=== PATIENT | female | born 1985 | race Caucasian/White ===

== ENCOUNTER 2019-07-17 09:54 | Inpatient (IN) | payer OTHER, MEDICARE, SELFPAY ==
--- NOTE | ~2019-07-17 | NM_ITS ---
EXAMINATION: NM hepatobiliary wo pharm EXAM DATE: 07/18/2019 12:56 INDICATION: Abdominal pain. TECHNIQUE: 5 mCi Tc-99m mebrofenin (Choletec) was administered intravenously. Scintigraphic images o f the abdomen were obtained for one hour. At the 1 hour 15 minute time point, 1.6 mcg sincalide (Kine vac) was administered by slow intravenous infusion, and imaging was continued for 30 minutes. Gallbla dder ejection fraction was calculated by the technologist. There is no prior study for comparison. FINDINGS: There is normal clearance of radiotracer from the blood pool. There is homogeneous tracer u ptake by the liver. Activity progresses to the gallbladder and bowel. The gallbladder ejection fract ion (GBEF) is 0 % (most patients with gallbladder dysfunction have GBEF < 35%, but there is overlap w ith the normal range of 10-90%). IMPRESSION: Gallbladder ejection fraction 0%, consistent with gallbladder dysfunction and/or chronic cholecystitis. Reviewed, dictated and finalized at location B. IMPRESSION: Gallbladder ejection fraction 0%, consistent with gallbladder dysf unction and/or chronic cholecystitis.
--- NOTE | ~2019-07-17 | US_ITS ---
EXAMINATION: US right upper quadrant EXAM DATE: 07/17/2019 14:24 INDICATION: Abdominal pain, nausea and vomiting. Symptoms 12 hours. TECHNIQUE: Multiple grayscale and Doppler images of the abdomen right upper quadrant were obtained (b y a technologist who performed the scan) and subsequently reviewed. Comparison is made to prior exami nation from 01/11/2016. FINDINGS: The pancreatic head and body are normal in appearance. The pancreatic tail is not visualized. The l iver has normal echogenicity and contour. There are no focal liver lesions identified. There is no evidence of intrahepatic biliary duct dilation. Portal venous flow was seen in the hepatopedal, nor mal direction and has normal Doppler waveform. No right-sided hydronephrosis. Common bile duct measures 5 mm, which is normal. The gallbladder wall is normal in thickness, with mo derate amount of distention. No sonographic evidence of pericholecystic fluid. There is no cholelit hiases. Technologist performing exam reports patient did not demonstrate sonographic Cho's sign. Please note that this sign is less reliable in patients who have received pain medication. IMPRESSION: 1. Moderately distended, but otherwise unremarkable gallbladder. Reviewed, dictated and finalized at location G.
--- NOTE | ~2019-07-17 | CT_ITS ---
EXAMINATION: CT abdomen pelvis w con DATE: 07/17/2019 10:55 INDICATION: Abdominal pain. Nausea and vomiting. TECHNIQUE: Computed tomography (CT) of the abdomen and pelvis was performed with 100 mL Omnipaque 350 intravenous contrast. Automated exposure control and iterative reconstruction technique were employe d. The dose-length product was 392.24 mGy-cm. COMPARISON: CT abdomen and pelvis 10/15/2018 FINDINGS: The visualized portions of the lung bases are clear without pneumonia or pleural effusion. The heart size is normal. No pericardial effusion. There is a small sliding hiatal hernia. The liver is normal. The gallbladder is distended. The spleen, pancreas, adrenal glands, and kidneys are normal . There are no dilated loops of bowel. There are no dilated loops of bowel. The appendix is not visua lized. There are no pathologically enlarged lymph nodes. There is trace pelvic ascites, likely physio logic. There is a benign bone island in proximal left femur. IMPRESSION: 1. Small sliding hiatal hernia. 2. Gallbladder distention, which may be secondary to fasting. Correlate with physical exam to exclude acute cholecystitis. Reviewed, dictated and finalized at location A. IMPRESSION: 1. Small sliding hiatal hernia. 2. Gallbladder distention, which may be secondary to fasting. Correlate with ph ysical exam to exclude acute cholecystitis.
[2019-07-17 10:00] VITALS: BP 111/78; PULSE 76; RESP 16; TEMP 36.4; O2SAT 100
--- NOTE | 2019-07-17 10:07 | ED.NAVMDI ---
HPI - Nausea/Vomiting/Diarrhea General Chief complaint: Nausea/Vomiting/Diarrhea Stated complaint: vomiting for a long time. Time Seen by Provider: 07/17/19 09:55 Source: patient and RN notes reviewed Mode of arrival: ambulatory Limitations: no limitations History of Present Illness HPI Narrative: Pt is a 34 y/o female who presents to the ED with c/o nausea and vomiting starting 12 hours ago. She notes that she has been vomiting roughly once per hour since her symptoms began. Pt states that she has been taking Zofran and Phenergan for her nausea, but notes that the medications don't alleviate her symptoms. She also reports having an intermittent fever for the past several days, upper ABD pain, and bright red blood in her stool, but denies any diarrhea or cough. Pt states that she has only had one episode of blood in her stool, which was earlier today. MD elicited complaint: nausea and vomiting Onset (ago): hour(s) (12) Associated nausea: Yes Associated abdominal pain: Yes Location of pain: other (upper ABD) Relieving factors: none Associated symptoms: fever/chills (fever) and other (hematochezia) Treatment prior to arrival: other (Phenergan) Related Data Home Medications Medication Instructions Recorded Confirmed baclofen 10 mg tablet 10 mg PO TID 05/21/19 cholecalciferol (vitamin D3) 1,250 50,000 unit PO WEEKLY 05/21/19 mcg (50,000 unit) capsule fingolimod 0.5 mg capsule 0.5 mg PO DAILY 05/21/19 modafinil 100 mg tablet 100 mg PO BID tablet 05/21/19 rizatriptan 10 mg tablet See Rx Instructions PO .COMPLEX 05/21/19 topiramate 200 mg tablet 200 mg PO BID 05/21/19 trazodone 50 mg tablet 50 mg PO TID 05/21/19 buspirone 10 mg PO BID 07/17/19 Allergies Allergy/AdvReac Type Severity Reaction Status Date / Time cefaclor Allergy Unknown Hives Verified 05/22/19 13:07 Review of Systems Review of Systems: All systems reviewed & are unremarkable except as noted in HPI and below Constitutional: Constitutional: Reports fever(s) Respiratory: Respiratory: Denies cough Gastrointestinal: Gastrointestinal: Reports abdominal pain (upper ABD pain), Reports hematochezia, Denies diarrhea, Reports nausea and Reports vomiting PMFSH Past Medical History Medical History Anxiety Colitis Fracture of left clavicle Gastric ulcer Hypothyroidism Major depressive disorder, single episode, unspecified Migraine, unspecified, not intractable, without status migrainosus Multiple sclerosis UTI (urinary tract infection) Surgical History Surgical History History of appendectomy History of elective section History of endometrial ablation Social History Social History Smoking status: Former smoker Smoking end date: 04/10/04 Alcohol intake: never Substance use: current Substance use type: marijuana Exam Narrative: Exam Narrative: APPEARANCE: No acute distress, nontoxic, resting in bed HEENT: Normocephalic, atraumatic, oromucosa dry RESPIRATORY: No respiratory distress, clear to auscultation bilaterally with no rhonchi wheezing or rales CARDIOVASCULAR: RRR s murmur ABDOMINAL: Soft, nondistended, diffusely tender to palpation, no rebound or guarding Rectal: No hemorrhoids or fissures, no active bleeding, soft brown stool that is Hemoccult negative MUSCULOSKELETAl: Moves all extremities. No clubbing, cyanosis or edema. NEURO: Awake and alert. Following commands, speech normal, no focal deficits SKIN:: Warm, dry. Normal Color PSYCHIATRIC: Normal affect/mood Course Course Emergency Course: Discussed with patient. States she has a history of GI complaints approximately once a month. States she is had no previous work-up Patient continues to have abdominal pain repeated on exam continues to be diffusely tender palpation with increased tenderness right upper quadrant. Continues
[2019-07-17] MEDS: ONDANSETRON INJ 4 MG/2 ML VIAL IV PUSH (10:20)
[2019-07-17] MEDS: SODIUM CHLORIDE 0.9% IV 1,000 ML 999 ML IV CONT ×2 (10:20→12:49)
[2019-07-17] MEDS: FAMOTIDINE 20 MG/2 ML VIAL IV PUSH (10:22)
[2019-07-17 10:24] LABS: Basophils Percent Auto 0.2 % (0.2-1.2); Hematocrit 43.3 % (37.0-47.0); Hemoglobin 14.2 g/dL (12.0-15.0); Immature Granulocyte Absolute 0.01 K/mm3 (0.00-0.031); Immature Granulocyte Percent A 0.2 % (0-0.5); Lymphocytes Absolute Auto 0.29 K/mm3 (0.9-3.2); Lymphocytes Percent Auto 5.9 % (18.3-44.2); Mean Corpuscular HGB Conc 32.8 g/dl (32-36); Mean Corpuscular Hemoglobin 30.3 pg (26-34); Mean Corpuscular Volume 92.5 fl (80-100); Mean Platelet Volume 10.5 fl (7.4-10.4); Monocytes Absolute Auto 0.2 K/mm3 (0.1-0.6); Monocytes Percent Auto 3.1 % (2.6-8.5); Neutrophils Absolute Auto 4.4 K/mm3 (1.3-6.7); Neutrophils Percent Auto 90.6 % (45.5-73.1); Platelet Count Result 204 k/mm3 (150-375); Red Blood Count 4.68 M/mm3 (4.2-5.4); Red Cell Distribution Width 12.4 % (11.5-14.5); White Blood Count 4.9 K/mm3 (4.5-10.0)
[2019-07-17 10:30] LABS: Add Urine Microscopic? YES; Amorphous Sediment Urine Few; Appearance Urine Cloudy (Clear); Bilirubin Urine 1+ (Negative); Blood Urine Negative (Negative); Color Urine Yellow (Yellow); Glucose Urine UA Negative (Negative); Ketones Urine 1+ mg/dL (Negative); Leukocyte Esterase Ur 1+ LEU/UL (Negative); Mucus Urine Few /lpf; Nitrate Urine Negative (Negative); Protein Urine 1+ mg/dL (Negative); Specific Grav Ur 1.025 (1.001-1.035); Squamous Epithelial Cell Urine Few /hpf (Few); Urobilinogen Urine Negative mg/dL (<2.0)
[2019-07-17 10:35] LABS: INR 0.9; Prothrombin Time 12.2 Seconds (11.1-14.7)
[2019-07-17 10:36] LABS: Partial Thromboplastin Time 29.2 SECONDS (22.3-36.8)
[2019-07-17 10:39] LABS: Alanine Aminotransferase 24 U/L (4-35); Albumin Level 4.9 g/dL (3.5-5.1); Alkaline Phosphatase 122 U/L (38-126); Aspartate Amino Transferase 22 U/L (14-36); Bilirubin,Total 0.4 mg/dL (0.2-1.3); Blood Urea Nitrogen 8 mg/dL (7-17); Calcium 9.3 mg/dL (8.4-10.2); Carbon Dioxide 22 mmol/L (22-30); Chloride 104 mmol/L (98-107); Estimated CRCL calculation 90 ml/min; Estimated Glomerular Filt Rate > 60; Glucose 117 mg/dL (65-105); Lipase 76 U/L (23-300); Potassium 3.7 mmol/L (3.4-5.0); Sodium 137 mmol/L (137-145)
[2019-07-17] MEDS: MORPHINE SULFATE 4 MG/ML INJ IV PUSH ×2 (11:31→14:31)
[2019-07-17 12:10] VITALS: BP 102/64; PULSE 76; RESP 18; O2SAT 99
[2019-07-17 13:01] VITALS: BP 105/68; PULSE 74; RESP 20; O2SAT 100
[2019-07-17 16:05] VITALS: BP 114/70; PULSE 74; RESP 16; TEMP 36.8; O2SAT 100
--- NOTE | 2019-07-17 16:10 | PC.NURSE ---
This patient, Jodee Vasquez, was admitted to [facility] Surg Room 313-01. Patient/family oriented to hospital policies and general routines including ID bracelet, bed and alarms, visiting hours, pain management, procedures, bathroom and other care routines, personal items, smoking policy, room service/diet, and visiting hours. Valuables list has been completed. Information on how to activate the Rapid Response Team has been discussed. Patient/Family are encouraged to report perceived risks to care and to ask questions if they do not understand what they are told or what they should do.
[2019-07-17 16:13] VITALS: BMI 26.1
[2019-07-17] MEDS: SODIUM CHLORIDE 0.9% IV 1,000 ML 125 ML IV CONT (17:20)
--- NOTE | 2019-07-17 21:00 | PM.IMHP ---
H&P: HPI History of Present Illness Chief complaint: Abdominal pain, nausea, vomiting. Narrative: Jodee Vasquez is a 34-year-old female with multiple sclerosis, migraine headaches, hypothyroidism, and reported history of peptic ulcer who presented to the emergency department earlier this morning from home for evaluation of abdominal pain, nausea, and vomiting. She notes a gradual onset of generalized abdominal discomfort between 36 in 48 hours ago. It progressed to severe nausea, and she had multiple episodes of emesis, initially ingested food but now she is mainly vomiting yellow emesis. Her abdominal pain today is situated mostly in epigastrium and radiates to the right upper quadrant. It is described as a severe, constant ache that will occasionally become sharp. It seems to be worse with food, movement, and especially with palpation. Additionally, she reports chills, sweats, and temperature up to 100.7?. Her son had similar symptoms, but his resolved after 24 hours. 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 She drinks about 3 cups of coffee per day. She denies hematemesis and melena. She notes a small amount of bright red blood per rectum today, and states that happens on occasion due to presumed hemorrhoids. She has no prior history of gallbladder disease or pancreatitis. She denies significant GERD or indigestion symptoms. No chest pain, cough, or shortness of breath. Review of Systems Review of Systems: Narrative: Twelve systems were reviewed with pertinent positives and negatives as per HPI. He has frequent migraine headaches. She is on disability due to her multiple sclerosis, which was originally diagnosed in 2008. She did not have any symptoms of such until 2013, and is now on daily medication. She has daily symptoms, mainly ?lethargy.? She denies diplopia, numbness, tingling, focal weakness. No dysuria hematuria. Except as documented, all other systems were reviewed and are negative. [facility] Past Medical History Medical History (Updated 07/17/19 @ 23:27 by Ro Green PA-C) Anxiety Colon polyp History of benign colon polyp on colonoscopy per Dr. June in 2013. Fracture of left clavicle Gastric ulcer Hypothyroidism Major depressive disorder, single episode, unspecified Migraine, unspecified, not intractable, without status migrainosus Multiple sclerosis UTI (urinary tract infection) Surgical History Surgical History History of appendectomy History of elective section History of endometrial ablation Family History Family History Mother Fibromyalgia Breast cancer Grandparent Lung cancer Rheumatoid arthritis Social History Social History (Updated 07/17/19 @ 23:26 by Ro Green PA-C) Social History: The patient is and lives with her and 3 of her children, ages 15, 8, and 6, in [facility]. Another child lives with their father. She is a former smoker, smoking perhaps a half a pack of cigarettes per day for 3 years. She denies alcohol use. Previously used marijuana. She designates her , Karen, as her surrogate decision maker and wishes to be a full code. Smoking packs per day: 0.5 Smoking cigarettes per day: 10.0 Years smoked: 3 Smoking pack-years: 1.50 Smoking status: Former smoker Tobacco type: cigarettes Smoking end date: 04/10/04 Alcohol intake: former Substance use: never Substance use type: marijuana Gender identity (if verbalized by the patient): Female Spiritual care concerns: Yes Agree to blood products: Yes Meds Home Medications and Allergies Home Medications Medication Instructions Recorded Confirmed Type levothyroxine 112 mcg tablet 112 mcg PO DAILY #90 tablet 02/12/19 07/17/19 Rx duloxetine
[2019-07-17 21:38] VITALS: BP 107/69; PULSE 78; RESP 18; TEMP 37.3; O2SAT 99
[2019-07-17] MEDS: MORPHINE SULFATE 2 MG/ML INJ IV PUSH (22:09)
--- NOTE | 2019-07-18 00:28 | PC.NURSE ---
Patient didn't take her ordered HS medication because patient took her medication she brought from home without notifying me first. Patient was explained and asked not to take her own pills while in hospital, we will provide and properly document medication during her stay. Patient stated she understood.
[2019-07-18] MEDS: SODIUM CHLORIDE 0.9% IV 1,000 ML 100 ML IV CONT ×2 (02:27→12:47)
[2019-07-18 05:47] LABS: Basophils Percent Auto 0.8 % (0.2-1.2); Eosinophils Percent Auto 0.4 % (0-4.4); Hematocrit 33.5 % (37.0-47.0); Immature Granulocyte Absolute 0.02 K/mm3 (0.00-0.031); Immature Granulocyte Percent A 0.8 % (0-0.5); Lymphocytes Absolute Auto 0.38 K/mm3 (0.9-3.2); Lymphocytes Percent Auto 14.3 % (18.3-44.2); Mean Corpuscular HGB Conc 32.8 g/dl (32-36); Mean Corpuscular Hemoglobin 30.7 pg (26-34); Mean Corpuscular Volume 93.6 fl (80-100); Mean Platelet Volume 10.3 fl (7.4-10.4); Monocytes Absolute Auto 0.4 K/mm3 (0.1-0.6); Monocytes Percent Auto 13.6 % (2.6-8.5); Neutrophils Absolute Auto 1.9 K/mm3 (1.3-6.7); Neutrophils Percent Auto 70.1 % (45.5-73.1); Platelet Count Result 152 k/mm3 (150-375); Red Blood Count 3.58 M/mm3 (4.2-5.4); Red Cell Distribution Width 12.3 % (11.5-14.5); White Blood Count 2.7 K/mm3 (4.5-10.0)
[2019-07-18 05:55] LABS: Alanine Aminotransferase 16 U/L (4-35); Albumin Level 3.2 g/dL (3.5-5.1); Alkaline Phosphatase 71 U/L (38-126); Aspartate Amino Transferase 17 U/L (14-36); Bilirubin,Total 0.3 mg/dL (0.2-1.3); Blood Urea Nitrogen 4 mg/dL (7-17); Calcium 8.1 mg/dL (8.4-10.2); Carbon Dioxide 23 mmol/L (22-30); Chloride 112 mmol/L (98-107); Estimated CRCL calculation 90 ml/min; Estimated Glomerular Filt Rate > 60; Glucose 91 mg/dL (65-105); Potassium 3.7 mmol/L (3.4-5.0); Sodium 142 mmol/L (137-145)
[2019-07-18 06:00] VITALS: BP 92/55; PULSE 69; RESP 16; TEMP 37.2; O2SAT 99
[2019-07-18 06:52] LABS: Thyroid Stimulating Hormone Reflex 0.732 uIU/mL (0.465-4.68)
[2019-07-18] MEDS: PANTOPRAZOLE SODIUM IV 40 MG VIAL IV PUSH ×2 (10:05→21:00)
--- NOTE | 2019-07-18 11:12 | PC.NURSE ---
Pt to NM per wheelchair @ 1040.
--- NOTE | 2019-07-18 12:42 | PC.NURSE ---
Pt returned from NM.
[2019-07-18] MEDS: MORPHINE SULFATE 2 MG/ML INJ IV PUSH ×3 (12:56→21:00)
[2019-07-18 13:57] VITALS: BP 105/65; PULSE 71; RESP 18; TEMP 37.5; O2SAT 100
--- NOTE | 2019-07-18 14:31 | PM.IMPN ---
Progress Note: A&P Assessment and Plan (1) Dysfunctional gallbladder: Code(s): K82.8 - Other specified diseases of gallbladder Status: Acute Assessment and Plan: HIDA scan revealed gallbladder ejection fraction of 0%. The pt continues to c/o abdominal pain. Her nausea and vomiting have resolved today but she is NPO. She reports a prior hx of gallbladder issues 6 years ago before the of her child. Will consult general surgery, recommendations are greatly appreciated (2) Nausea and vomiting: Code(s): R11.2 - Nausea with vomiting, unspecified Status: Acute Assessment and Plan: The pt has not had any further nausea or vomiting today. She reports that antiemetics are helping her sx significantly. She is also NPO. Continue zofran PRN Will discontinue IV fluids once the pt is no longer NPO (3) Hypothyroidism: Code(s): E03.9 - Hypothyroidism, unspecified Status: Chronic Assessment and Plan: Continue levothyroxine (4) Multiple sclerosis: Code(s): G35 - Multiple sclerosis Status: Chronic Assessment and Plan: The pt has relapsing-remitting MS. She Continue fingolimod (5) Intractable abdominal pain: Code(s): R10.9 - Unspecified abdominal pain Status: Acute Assessment and Plan: I suspect that this pain is due to her gallbladder dysfunction. Abdomen/pelvis CT revealed gallbladder distention and small sliding hiatal hernia. RUQ US revealed moderate gallbladder distention. HIDA scan revealed gallbladder EF of 0% consistent with gallbladder dysfunction. Subjective Date/time seen: 07/18/19 14:31 Interval history: Mrs. Vasquez is seen and examined at bedside in follow-up for intractable abdominal pain. She reports persistent right upper and mid abdominal pain. She describes it as sharp and aching. She reports that her nausea and vomiting have resolved although she has been NPO since midnight. She also reports a migraine and has chronic migraines. She states that her stools are loose although she does not currently have diarrhea. She did not sleep well overnight and is tired today. Review of Systems Review of Systems: All systems reviewed & are unremarkable except as noted in HPI and below Exam Narrative: Exam Narrative: General: 34 y.o. female who is well-developed, cooperative, and lying on her right side in bed resting. HEENT: Normocephalic and atraumatic. PERRL. EOMI. Mucous membranes moist. Neck: Supple. No lymphadenopathy or masses. Cardiac: Regular rate and rhythm. S1 and S2 normal. Lungs: Lungs are clear to auscultation bilaterally without rales, rhonchi, or wheezing. Abdomen: Abdomen grossly normal to visualization. Abdomen is soft and non-distended. She has tenderness to palpation of the right upper and mid abdomen. No overt Cho's sign during my exam. Musculoskeletal: ROM within normal limits. Extremities: No lower extremity edema. DP and PT palpable bilaterally. Neurological: Alert and oriented x3. No focal neurological deficits noted. Speech is clear. Skin: Warm and dry. Psychiatric: Judgment and insight intact. Flat affect. Mood normal. Objective Data Vital Signs Vital Signs: Vital Signs - 24 hr 07/17/19 16:05 07/17/19 21:38 07/18/19 06:00 Temperature 98.2 F 99.2 F 99.0 F Pulse Rate 74 78 69 Respiratory Rate 16 18 16 Blood Pressure 114/70 107/69 92/55 L Pulse Oximetry 100 99 99 07/18/19 13:57 Temperature 99.5 F Pulse Rate 71 Respiratory Rate 18 Blood Pressure 105/65 Pulse Oximetry 100 Intake/Output Intake/Output: Intake & Output 07/15/19 07/16/19 07/17/19 07/18/19 23:59 23:59 23:59 23:59 Intake Total 2630 2240 Output Total 600 Balance 2630 1640 Meds/Results Medications: Active Medications Generic Name Dose Route Start Last Admin Trade Name Freq PRN Reason Stop Dose Admin Baclofen 10 mg 07/17/19 23:45 07/18/19 10:01 Lioresal Po PO Not Given
[2019-07-18] MEDS: TRAZODONE HCL 50 MG TABLET PO (16:58)
[2019-07-18] MEDS: TOPIRAMATE 100 MG TABLET 200 MG PO (16:59)
[2019-07-18] MEDS: BACLOFEN 10 MG TABLET PO (16:59)
[2019-07-18] MEDS: carBAMazepine 200 MG TABLET PO (20:59)
[2019-07-18] MEDS: busPIRone HCL 10 MG TABLET PO (20:59)
[2019-07-18] MEDS: ONDANSETRON INJ 4 MG/2 ML VIAL IV PUSH (21:00)
[2019-07-18 22:00] VITALS: BP 102/65; PULSE 61; RESP 16; TEMP 37.2; O2SAT 99
[2019-07-19] VITALS (14 sets, daily range): BP systolic 99–137; BP diastolic 63–97; PULSE 66–96; RESP 12–20; TEMP 36.2–37.4; O2SAT 93–100
[2019-07-19] MEDS: MORPHINE SULFATE 2 MG/ML INJ IV PUSH ×3 (01:25→16:53)
[2019-07-19] MEDS: SODIUM CHLORIDE 0.9% IV 1,000 ML 75 ML IV CONT ×2 (01:29→19:47)
[2019-07-19 06:07] LABS: Basophils Percent Auto 0.8 % (0.2-1.2); Eosinophils Percent Auto 0.8 % (0-4.4); Hematocrit 35.5 % (37.0-47.0); Hemoglobin 11.5 g/dL (12.0-15.0); Lymphocytes Absolute Auto 0.47 K/mm3 (0.9-3.2); Lymphocytes Percent Auto 18.5 % (18.3-44.2); Mean Corpuscular HGB Conc 32.4 g/dl (32-36); Mean Corpuscular Hemoglobin 30.2 pg (26-34); Mean Corpuscular Volume 93.2 fl (80-100); Mean Platelet Volume 10.6 fl (7.4-10.4); Monocytes Absolute Auto 0.3 K/mm3 (0.1-0.6); Monocytes Percent Auto 12.6 % (2.6-8.5); Neutrophils Absolute Auto 1.7 K/mm3 (1.3-6.7); Neutrophils Percent Auto 67.3 % (45.5-73.1); Platelet Count Result 162 k/mm3 (150-375); Red Blood Count 3.81 M/mm3 (4.2-5.4); Red Cell Distribution Width 12.4 % (11.5-14.5); White Blood Count 2.5 K/mm3 (4.5-10.0)
[2019-07-19 06:10] LABS: Alanine Aminotransferase 17 U/L (4-35); Albumin Level 3.4 g/dL (3.5-5.1); Alkaline Phosphatase 73 U/L (38-126); Aspartate Amino Transferase 20 U/L (14-36); Bilirubin,Total 0.3 mg/dL (0.2-1.3); Blood Urea Nitrogen 3 mg/dL (7-17); Calcium 8.3 mg/dL (8.4-10.2); Carbon Dioxide 22 mmol/L (22-30); Chloride 113 mmol/L (98-107); Estimated CRCL calculation 90 ml/min; Estimated Glomerular Filt Rate > 60; Glucose 82 mg/dL (65-105); Magnesium 1.9 mg/dL (1.6-2.3); Potassium 3.5 mmol/L (3.4-5.0); Sodium 140 mmol/L (137-145)
[2019-07-19] MEDS: LEVOTHYROXINE SODIUM 112 MCG TABLET PO (06:25)
[2019-07-19] MEDS: BACLOFEN 10 MG TABLET PO ×2 (09:19→17:01)
[2019-07-19] MEDS: carBAMazepine 200 MG TABLET PO ×2 (09:20→21:07)
[2019-07-19] MEDS: busPIRone HCL 10 MG TABLET PO ×2 (09:20→21:07)
[2019-07-19] MEDS: PANTOPRAZOLE SODIUM IV 40 MG VIAL IV PUSH ×2 (09:20→21:08)
[2019-07-19] MEDS: DULOXETINE 60 MG CAPSULE.DR 120 MG PO (09:20)
[2019-07-19] MEDS: TRAZODONE HCL 50 MG TABLET PO ×2 (09:21→17:00)
[2019-07-19] MEDS: TOPIRAMATE 100 MG TABLET 200 MG PO ×2 (09:21→17:00)
[2019-07-19] MEDS: ONDANSETRON INJ 4 MG/2 ML VIAL IV PUSH (09:22)
--- NOTE | 2019-07-19 09:26 | PM.CNGS ---
Assessment and Plan Assessment and plan (1) Cholecystitis without calculus: Code(s): K81.9 - Cholecystitis, unspecified Status: Acute Assessment and Plan: Patient continues to be very symptomatic despite low-fat diet. Long discussion with patient regarding cholecystectomy, including risks benefits and alternatives. Patient would like to proceed with cholecystectomy at this time. (2) Dysfunctional gallbladder: Code(s): K82.8 - Other specified diseases of gallbladder Status: Acute Assessment and Plan: HIDA reviewed and noted EF on 0%. Pt c likely chronic cholecystitis. Will proceed c cholecystectomy. History of Present Illness Consult details Consult date: 07/19/19 Reason for consult: abdominal pain Narrative: Patient is a 34-year-old female that presented to the hospital complaining of severe upper abdominal pain. Patient reports that the pain has been constant and severe over the last 48 hours. Patient reports the pain is mostly located in her epigastrium and right upper quadrant. Patient reports the pain seems to be exacerbated after eating. Patient reports similar symptoms in the past, however not as severe or this constant. Patient reports during HIDA scan yesterday she had reproduction of her symptoms. Patient reports associated nausea and vomiting, anorexia. Review of Systems Constitutional: Constitutional: Reports anorexia, Denies chills, Reports fatigue, Denies headache(s), Denies malaise, Reports poor appetite, Denies weight gain and Denies weight loss Eyes: Eyes: Denies loss of vision ENT: Denies dysphagia, Denies headache(s), Denies hearing loss and Denies sore throat Cardiovascular: Cardiovascular: Denies chest pain, Denies syncope, Denies irregular heart rhythm, Denies leg edema and Denies dyspnea Respiratory: Respiratory: Denies cough and Denies dyspnea Gastrointestinal: Gastrointestinal: Reports abdominal pain, Reports bloating, Denies change in bowel habits, Denies change in stool character, Denies constipation, Denies dysphagia, Denies heartburn, Denies diarrhea, Reports nausea and Reports vomiting Genitourinary: Genitourinary: Denies urinary frequency, Denies dysuria and Denies urinary urgency Musculoskeletal: Musculoskeletal: Denies myalgias, Denies arthralgias and Denies muscle cramps Integumentary/Breasts: Skin/Breast: Denies non-healing lesions and Denies rash Neurologic: Denies syncope, Denies headache(s) and Denies loss of vision Endocrine: Endocrine: Denies change in body appearance and Denies fatigue Hematologic/Lymphatic: Hematologic/Lymphatic: Denies easy bleeding, Denies easy bruising and Denies lymphadenopathy [facility] Past Medical History Medical History (Updated 07/19/19 @ 09:31 by Tamia Galicia MD) Anxiety Colon polyp History of benign colon polyp on colonoscopy per Dr. June in 2013. Fracture of left clavicle Gastric ulcer Hypothyroidism Major depressive disorder, single episode, unspecified Migraine, unspecified, not intractable, without status migrainosus Multiple sclerosis UTI (urinary tract infection) Surgical History Surgical History History of appendectomy History of elective section History of endometrial ablation Family History Family History Mother Fibromyalgia Breast cancer Grandparent Lung cancer Rheumatoid arthritis Social History Social History (Updated 07/17/19 @ 23:26 by Ro Green PA-C) Social History: The patient is and lives with her and 3 of her children, ages 15, 8, and 6, in [facility]. Another child lives with their father. She is a former smoker, smoking perhaps a half a pack of cigarettes per day for 3 years. She denies alcohol use. Previously used marijuana. She designates her , Karen, as her surrogate decision maker and wishes to be a full
--- NOTE | 2019-07-19 11:18 | PC.NURSE ---
Patient to OR at 1120.
[2019-07-19] MEDS: LACTATED RINGERS 1,000 ML 30 ML IV CONT ×2 (11:25→14:35)
--- NOTE | 2019-07-19 11:49 | WPDANESEPPF ---
Anes - Initial Pre Proc Eval Procedure: Operation Date: 07/19/19 11:30 Proposed Procedures p Laparoscopic Cholecystectomy - Tamia Galicia MD Date/Time: 07/19/19 11:49 Surgeon: Cierra Zelaya PA-C Pre Op Diagnosis: Abdominal pain, nausea, vomiting. Patient Data Age: 34 Gender: F Height: 5 ft 6 in Weight: 73.4 kg Last Vital Signs Temp 37.4 C 07/19/19 06:00 Pulse 75 07/19/19 06:00 Resp 16 07/19/19 06:00 BP 99/63 L 07/19/19 06:00 Pulse Ox 100 07/19/19 06:00 Allergies Allergy/AdvReac Type Severity Reaction Status Date / Time cefaclor Allergy Unknown Hives Verified 07/17/19 16:25 adhesive tape AdvReac Rash Verified 07/17/19 19:00 Home Medications Medication Instructions Recorded Confirmed Type levothyroxine 112 mcg tablet 112 mcg PO DAILY #90 tablet 02/12/19 07/17/19 Rx duloxetine 60 mg capsule,delayed 120 mg PO DAILY #180 cap 02/18/19 07/17/19 Rx release baclofen 10 mg tablet 10 mg PO TID 05/21/19 07/17/19 History cholecalciferol (vitamin D3) 1,250 50,000 unit PO WEEKLY 05/21/19 07/17/19 History mcg (50,000 unit) capsule fingolimod 0.5 mg capsule 0.5 mg PO DAILY 05/21/19 07/17/19 History topiramate 200 mg tablet 200 mg PO BID 05/21/19 07/17/19 History trazodone 50 mg tablet 50 mg PO TID 05/21/19 07/17/19 History carbamazepine 200 mg tablet 200 mg PO Q12H #180 tablet 07/15/19 07/17/19 Rx buspirone 10 mg PO BID 07/17/19 07/17/19 History Laboratory Tests 07/19/19 07/19/19 05:09 05:09 WBC 2.5 K/mm3 L K/mm3 (4.5-10.0) RBC 3.81 M/mm3 L M/mm3 (4.2-5.4) Hgb 11.5 g/dL L g/dL (12.0-15.0) Hct 35.5 % L % (37.0-47.0) MCV 93.2 fl fl (80-100) MCH 30.2 pg pg (26-34) MCHC 32.4 g/dl g/dl (32-36) RDW 12.4 % % (11.5-14.5) Plt Count 162 k/mm3 k/mm3 (150-375) MPV 10.6 fl H fl (7.4-10.4) Immature Gran % (Auto) 0.0 % % (0-0.5) Neut % (Auto) 67.3 % % (45.5-73.1) Lymph % (Auto) 18.5 % % (18.3-44.2) [place] % (Auto) 12.6 % H % (2.6-8.5) Eos % (Auto) 0.8 % % (0-4.4) Baso % (Auto) 0.8 % % (0.2-1.2) Lymph # (Auto) 0.47 K/mm3 L K/mm3 (0.9-3.2) [place] # (Auto) 0.3 K/mm3 K/mm3 (0.1-0.6) Eos # (Auto) 0.0 K/mm3 K/mm3 (0-0.3) Baso # (Auto) 0.0 K/mm3 K/mm3 (0.0-0.1) Abs Immat Gran (auto) 0.00 K/mm3 K/mm3 (0.00-0.031) Absolute Neuts (auto) 1.7 K/mm3 K/mm3 (1.3-6.7) Absolute Nucleated RBC 0.0 K/mm3 K/mm3 (0.0-0.012) Nucleated RBC % 0.0 % % (0.0-0.2) Sodium 140 mmol/L mmol/L (137-145) Potassium 3.5 mmol/L mmol/L (3.4-5.0) Chloride 113 mmol/L H mmol/L (98-107) Carbon Dioxide 22 mmol/L mmol/L (22-30) BUN 3 mg/dL L mg/dL (7-17) Creatinine 0.70 mg/dL mg/dL (0.7-1.0) Estim Creat Clear Calc 90 ml/min ml/min Estimated GFR > 60 (59 - ) Glucose 82 mg/dL mg/dL (65-105) Calcium 8.3 mg/dL L mg/dL (8.4-10.2) Magnesium 1.9 mg/dL mg/dL (1.6-2.3) Total Bilirubin 0.3 mg/dL mg/dL (0.2-1.3) AST 20 U/L U/L (14-36) ALT 17 U/L U/L (4-35) Alkaline Phosphatase 73 U/L U/L (38-126) Total Protein 6.0 g/dL L g/dL (6.3-8.2) Albumin 3.4 g/dL L g/dL (3.5-5.1) Patient hx anesthesia problems: none Family hx anesthesia problems: none PMFSH Past Medical History Medical History Anxiety Colon polyp History of benign colon polyp on colonoscopy per Dr. June in 2013. Fracture of left clavicle Gastric ulcer Hypothyroidism Major depressive disorder, single episode, unspecified Migraine, unspecified, not intractable, without status migrainosus Multiple sclerosis UTI (urinary tract infection) Surgical History Surgical History History of appendectomy History o
[2019-07-19] MEDS: SCOPOLAMINE 1.5 MG PATCH TRANSDERM (12:05)
--- NOTE | 2019-07-19 12:05 | P.OP_ITS ---
Procedure Note - Detailed Date of procedure: 07/19/19 Pre-op diagnosis: cholecystitis Post-op diagnosis: same Procedure performed: laparoscopic cholecystectomy Description of procedure: The patient was taken to the operating room placed in the supine position. After adequate induction of general anesthesia, the patient was prepped and draped in normal sterile fashion. A time-out was then performed to verify the patient's identity as well as the procedure being performed. I then made a 5 mm incision in the infraumbilical region. Through this, a Veress needle was placed into the peritoneal cavity and CO2 gas was then insufflated. After adequate pneumoperitoneum was achieved, the Veress needle was removed and a 5 mm trocar was placed through this incision. I then placed the laparoscoped through this trocar site and under direct visualization placed a further 12 mm subxiphoid port as well as 2 additional 5 mm ports in the right upper abdomen. The gallbladder was then identified and was noted to be moderately inflamed. I was able to place a grasper at the dome of the gallbladder and this was retracted anterior and cephalad up over the liver. A 2nd retractor was then placed at the infundibulum and retracted laterally, this allowed visualization of the triangle of Calot. I then was able to visualize the cystic duct in its entirety from its proximal insertion into the gallbladder, to its distal junction with the common hepatic/common bile duct junction. At this point, I carefully skeletonized the proximal cystic duct with the [place] dissector. I then clipped and transected the proximal cystic duct. Next I visualized the cystic artery. Again the artery was skeletonized, clipped, and transected. I then used the Bovie cautery to take down the peritoneal attachments of the gallbladder off the liver bed. Once the gallbladder specimen was completely detached, an endo-pouch was placed through the 12 mm port site. I then placed the gallbladder specimen into the Endo pouch and removed the endo-pouch from the 12 mm port site. The specimen will now be sent to pathology for further review. I then copiously irrigated the right upper quadrant. Hemostasis was noted in the liver bed, the clips were noted to be in good position on both the cystic duct stump and the cystic artery stump. No other pathology was noted in the right upper quadrant. I then moved the laparoscope to the subxiphoid port. No iatrogenic injury or other pathology was noted in the lower abdomen. At this point, the abdomen was desufflated and all ports removed. The fascia of the 12 mm subxiphoid port was closed with a 0 Vicr yl figure of 8 suture. All port sites were then closed with 4.O Monocryl subcuticular sutures. Dermabond was placed on each incision. The patient tolerated the procedure well, was extubated in the operating room postoperative and will be transferred to the recovery room in stable condition. Implants: none Anesthesia: GETA Surgeon: Tamia Galicia MD Estimated blood loss (mL): 5 Drains: No Packing: No Pathology: yes Complications: No immediate complications Condition: stable Disposition: PACU Findings: moderately inflammed GB, trace pericholecystic fluid
[2019-07-19] MEDS: BUPIVACAINE/EPINEPHRINE 0.5% 30 ML VIAL INFILTRATE (13:17)
[2019-07-19] MEDS: HYDROMORPHONE HCL 1 MG/ML INJ 0.5 MG IV PUSH ×6 (14:01→14:53)
[2019-07-19] MEDS: MEPERIDINE HCL INJ 50 MG/ML AMPUL IV PUSH (14:33)
--- NOTE | 2019-07-19 14:59 | SUR.PHASEI ---
1459 - dr. gore called in regards to pt's c/o pain. no orders received at this time.
--- NOTE | 2019-07-19 15:39 | PC.NURSE ---
Patient returned from OR at 1520.
--- NOTE | 2019-07-19 15:43 | PM.IMPN ---
Progress Note: A&P Assessment and Plan (1) Dysfunctional gallbladder: Code(s): K82.8 - Other specified diseases of gallbladder Status: Acute Assessment and Plan: HIDA scan revealed gallbladder ejection fraction of 0%. Dr. Galicia was consulted and the pt underwent laparoscopic cholecystectomy today. Post-op care per Dr. Galicia (2) Nausea and vomiting: Code(s): R11.2 - Nausea with vomiting, unspecified Status: Acute Assessment and Plan: She reports nausea and vomiting have resolved. Continue zofran PRN (3) Hypothyroidism: Code(s): E03.9 - Hypothyroidism, unspecified Status: Chronic Assessment and Plan: Continue levothyroxine (4) Multiple sclerosis: Code(s): G35 - Multiple sclerosis Status: Chronic Assessment and Plan: The pt has relapsing-remitting MS. She Continue fingolimod (5) Intractable abdominal pain: Code(s): R10.9 - Unspecified abdominal pain Status: Acute Assessment and Plan: I suspect that this pain is due to her gallbladder dysfunction. Abdomen/pelvis CT revealed gallbladder distention and small sliding hiatal hernia. RUQ US revealed moderate gallbladder distention. HIDA scan revealed gallbladder EF of 0% consistent with gallbladder dysfunction. She is s/p laparoscopic cholecystectomy. Subjective Date/time seen: 07/19/19 15:43 Interval history: Mrs. Vasquez is seen and examined at bedside in follow-up for dysfunctional gallbladder. She is s/p laparoscopic cholecystectomy today and was just brought up to the floor from PACU. She reports significant lower abdominal pain. She denies nausea and vomiting. She denies headaches, lightheadedness, and dizziness. Review of Systems Review of Systems: All systems reviewed & are unremarkable except as noted in HPI and below Exam Narrative: Exam Narrative: General: 34 y.o. female who is well-developed, cooperative, and lying on her right side in bed resting. HEENT: PERRL. EOMI. Mucous membranes moist. Neck: Supple. No lymphadenopathy or masses. Cardiac: Regular rate and rhythm. S1 and S2 normal. Lungs: Lungs are clear to auscultation bilaterally without rales, rhonchi, or wheezing. Abdomen: Pt will not let me assess at all due to pain. Extremities: No lower extremity edema. DP and PT palpable bilaterally. Neurological: Alert and oriented x3. No focal neurological deficits noted. Speech is clear. Skin: Warm and dry. Psychiatric: Judgment and insight intact. Pt is upset due to pain. Objective Data Vital Signs Vital Signs: Vital Signs - 24 hr 07/18/19 22:00 07/19/19 06:00 07/19/19 11:27 Temperature 98.9 F 99.3 F 97.6 F Pulse Rate 61 75 66 Respiratory Rate 16 16 20 Blood Pressure 102/65 99/63 L 122/75 Pulse Oximetry 99 100 100 07/19/19 13:45 07/19/19 14:00 07/19/19 14:15 Temperature 97.2 F L Pulse Rate 92 95 92 Respiratory Rate 14 16 12 Blood Pressure 131/97 H 128/76 132/79 Pulse Oximetry 100 95 96 07/19/19 14:30 07/19/19 14:48 07/19/19 15:08 Temperature Pulse Rate 95 84 90 Respiratory Rate 12 18 16 Blood Pressure 122/75 125/76 123/78 Pulse Oximetry 95 97 93 07/19/19 15:15 Temperature Pulse Rate 96 Respiratory Rate 20 Blood Pressure 134/79 Pulse Oximetry 96 Intake/Output Intake/Output: Intake & Output 07/16/19 07/17/19 07/18/19 07/19/19 23:59 23:59 23:59 23:59 Intake Total 2630 2960 1912 Output Total 600 700 Balance 2630 2360 1212 Meds/Results Medications: Active Medications Generic Name Dose Route Start Last Admin Trade Name Freq PRN Reason Stop Dose Admin Hydrocodone Bitart/Acetaminophen 1 tab 07/19/19 13:35 [place] 5-325 Mg PO Q4H PRN Pain Rated 4-6 Baclofen 10 mg 07/17/19 23:45 07/19/19 09:19 Lioresal Po PO 10 mg TID DIVINA Administration Buspirone HCl 10 mg 07/17/19 23:45 07/19/19 09:20 Buspar PO 10 mg Q12HR DIVINA Administration Carbamazepine
[2019-07-19] MEDS: KETOROLAC 30 MG/ML VIAL (*BKC) IV PUSH (18:55)
[2019-07-20 02:00] VITALS: BP 95/51; PULSE 67; RESP 16; TEMP 37.2; O2SAT 100
[2019-07-20] MEDS: MORPHINE SULFATE 2 MG/ML INJ IV PUSH (04:43)
[2019-07-20 06:00] VITALS: BP 110/51; PULSE 74; RESP 16; TEMP 36.8; O2SAT 99
[2019-07-20 06:04] LABS: Hematocrit 32.9 % (37.0-47.0); Hemoglobin 10.9 g/dL (12.0-15.0); Mean Corpuscular HGB Conc 33.1 g/dl (32-36); Mean Corpuscular Hemoglobin 30.4 pg (26-34); Mean Corpuscular Volume 91.6 fl (80-100); Mean Platelet Volume 10.4 fl (7.4-10.4); Platelet Count Result 158 k/mm3 (150-375); Red Blood Count 3.59 M/mm3 (4.2-5.4); Red Cell Distribution Width 12.1 % (11.5-14.5); White Blood Count 5.5 K/mm3 (4.5-10.0)
[2019-07-20] MEDS: LEVOTHYROXINE SODIUM 112 MCG TABLET PO (06:16)
[2019-07-20 06:39] LABS: Alanine Aminotransferase 31 U/L (4-35); Albumin Level 3.3 g/dL (3.5-5.1); Alkaline Phosphatase 75 U/L (38-126); Aspartate Amino Transferase 42 U/L (14-36); Bilirubin,Total 0.5 mg/dL (0.2-1.3); Blood Urea Nitrogen 4 mg/dL (7-17); Calcium 8.3 mg/dL (8.4-10.2); Carbon Dioxide 23 mmol/L (22-30); Chloride 111 mmol/L (98-107); Estimated CRCL calculation 90 ml/min; Estimated Glomerular Filt Rate > 60; Glucose 88 mg/dL (65-105); Potassium 3.5 mmol/L (3.4-5.0); Sodium 139 mmol/L (137-145)
[2019-07-20] MEDS: BACLOFEN 10 MG TABLET PO (08:38)
[2019-07-20] MEDS: busPIRone HCL 10 MG TABLET PO (08:38)
[2019-07-20] MEDS: ERGOCALCIFEROL 50,000 UNIT CAPSULE 50000 UNITS PO (08:39)
[2019-07-20] MEDS: carBAMazepine 200 MG TABLET PO (08:39)
[2019-07-20] MEDS: DULOXETINE 60 MG CAPSULE.DR 120 MG PO (08:39)
[2019-07-20] MEDS: TOPIRAMATE 100 MG TABLET 200 MG PO (08:40)
[2019-07-20] MEDS: KETOROLAC 10 MG TABLET PO (09:53)
[2019-07-20] MEDS: PANTOPRAZOLE 40 MG TABLET PO (11:03)
--- NOTE | 2019-07-20 11:16 | PM.PNGS ---
Progress Note: A&P Assessment and Plan (1) Cholecystitis without calculus: Code(s): K81.9 - Cholecystitis, unspecified Status: Acute Assessment and Plan: doing well postop. Okay to discharge today from our standpoint. Patient should see Dr. Galicia in 2 weeks. Instructions were given. (2) Multiple sclerosis: Code(s): G35 - Multiple sclerosis Status: Chronic (3) Fibromyalgia: Code(s): M79.7 - Fibromyalgia Status: Chronic Subjective Subjective Date/Time Seen: 07/20/19 11:16 Post Op day: 1 Patient reports: no new complaints, feels better, pain is less and tolerating liquids well Exam GI: Inspection: non-distended and incision ( Healing well) GI Palp: Yes Soft to palpation and Yes Tenderness to palpation present (GI) Auscultation: normal bowel sounds Objective Data Vital Signs Vital Signs: Vital Signs - 24 hr 07/19/19 11:27 07/19/19 13:45 07/19/19 14:00 Temperature 36.4 C 36.2 C L Pulse Rate 66 92 95 Respiratory Rate 20 14 16 Blood Pressure 122/75 131/97 H 128/76 Pulse Oximetry 100 100 95 07/19/19 14:15 07/19/19 14:30 07/19/19 14:48 Temperature Pulse Rate 92 95 84 Respiratory Rate 12 12 18 Blood Pressure 132/79 122/75 125/76 Pulse Oximetry 96 95 97 07/19/19 15:08 07/19/19 15:15 07/19/19 15:45 Temperature 36.8 C Pulse Rate 90 96 87 Respiratory Rate 16 20 18 Blood Pressure 123/78 134/79 126/70 Pulse Oximetry 93 96 99 07/19/19 16:00 07/19/19 16:30 07/19/19 17:30 Temperature 36.9 C 36.9 C 37.2 C Pulse Rate 82 80 81 Respiratory Rate 18 18 18 Blood Pressure 132/74 130/73 137/73 Pulse Oximetry 98 97 96 07/19/19 22:33 07/20/19 02:00 07/20/19 06:00 Temperature 37.2 C 37.2 C 36.8 C Pulse Rate 70 67 74 Respiratory Rate 16 16 16 Blood Pressure 108/63 95/51 L 110/51 L Pulse Oximetry 97 100 99 Intake/Output Intake/Output: Intake & Output 07/17/19 07/18/19 07/19/19 07/20/19 23:59 23:59 23:59 23:59 Intake Total 2630 2960 2540 1608 Output Total 344 948 5405 Balance 2630 2360 1840 -1192 Meds/Results Medications: Active Medications Generic Name Dose Route Start Last Admin Trade Name Freq PRN Reason Stop Dose Admin Baclofen 10 mg 07/17/19 23:45 07/20/19 08:38 Lioresal Po PO 10 mg TID DIVINA Administration Buspirone HCl 10 mg 07/17/19 23:45 07/20/19 08:38 Buspar PO 10 mg Q12HR DIVINA Administration Carbamazepine 200 mg 07/17/19 23:45 07/20/19 08:39 Tegretol PO 200 mg Q12HR DIVINA Administration Duloxetine HCl 120 mg 07/18/19 09:00 07/20/19 08:39 Cymbalta PO 120 mg DAILY DIVINA Administration Ergocalciferol 50,000 unit 07/20/19 09:00 07/20/19 08:39 Drisdol PO 50,000 unit WEEKLY DIVINA Administration Fentanyl Citrate 25 mcg 07/19/19 11:50 07/19/19 12:30 Sublimaze IV PUSH 25 mcg Q2M PRN Administration Pain Lactated Ringer's 1,000 mls @ 30 mls/hr 07/19/19 11:50 07/19/19 14:33 Lr - Lactated Ringers Iv IV CONT Infused .Q24H DIVINA Infusion Lactated Ringer's 1,000 mls @ 30 mls/hr 07/19/19 11:50 07/19/19 15:18 Lr - Lactated Ringers Iv IV CONT Infused .Q24H DIVINA Infusion Ketorolac Tromethamine 10 mg 07/20/19 09:37 07/20/19 09:53 Toradol Tab PO 10 mg Q6H PRN Administration Pain Rated 4-6 Levothyroxine Sodium 112 mcg 07/18/19 06:30 07/20/19 06:16 Synthroid PO 112 mcg DAILY@0630 DIVINA Administration Morphine Sulfate 2 mg 07/17/19 21:49 07/20/19 04:43 Morphine Sulfate Inj IV PUSH 2 mg Q4H PRN Administration Pain Rated 7-10 Non-Formulary Medication 0.5 mg 07/18/19 09:00 Fingolimod [Gilenya] PO 08/17/19 09:01 DAILY DIVINA Ondansetron HCl 4 mg 07/19/19 11:50 Zofran Inj IV PUSH ONCE PRN Nausea Pantoprazole Sodium 40 mg 07/20/19 09:45 07/20/19 11:03 Protonix PO 40 mg Q12HR DIVINA Administration Scopolamine 1.5 mg 07/19/19 09:00 07/19/19 12:05 Transderm-Scop TRANSDERM 1.5 mg
--- NOTE | 2019-07-20 13:04 | PM.DS ---
DS: Diagnosis Admitting Diagnosis Admitting Diagnosis: Unspecified abdominal pain Discharge Diagnosis (1) Dysfunctional gallbladder: Code(s): K82.8 - Other specified diseases of gallbladder Status: Resolved (2) Nausea and vomiting: Code(s): R11.2 - Nausea with vomiting, unspecified Status: Resolved (3) Hypothyroidism: Code(s): E03.9 - Hypothyroidism, unspecified Status: Chronic (4) Multiple sclerosis: Code(s): G35 - Multiple sclerosis Status: Chronic (5) Intractable abdominal pain: Code(s): R10.9 - Unspecified abdominal pain Status: Resolved DS: Summary Hospital Course Reason for hospitalization: Mrs. Vasquez is a 34 y.o. female with PMH significant for multiple sclerosis, migraine headaches, hypothyroidism, hx of gastric, and depression who presented to the ED with severe aching abdominal pain in the epigastrium radiating to the RUQ, nausea, and vomiting. Initial workup in the ED revealed WBC 4.9, Hb 14.2, Hct 43.3, total bilirubin 0.4, AST 22, ALT 24, and ALP 122. CMP and CBC were otherwise unremarkable. Lipase was 76. CT abdomen/pelvis revealed gallbladder distention and small sliding hiatal hernia. RUQ US revealed moderate gallbladder distention. The pt was admitted to the hospitalist service for further workup and treatment. She underwent HIDA scan revealed which gallbladder ejection fraction of 0%. Dr. Galicia with general surgery was consulted and the pt underwent laparoscopic cholecystectomy by Dr. Galicia 07/18. She recovered well post-op. She reports that her nausea and vomiting have subsided today. She is tolerating PO intake well. She complains of post-op incisional pain but her abdominal pain is improving. She was evaluated by the general surgery team and cleared from discharge from their standpoint. She is hemodynamically stable and neurologically intact at the time of discharge. Status at Discharge Functional status at discharge: independent ambulation Overall status at discharge: patient is progressing back to baseline Time Spent with Patient Time attestation: Total time spent providing and/or coordinating discharge services: 25 minutes Exam Narrative: Exam Narrative: General: 34 y.o. female who is well-developed and cooperative. She is in no acute distress. HEENT: PERRL. EOMI. Mucous membranes moist. No posterior pharyngeal erythema or exudate. Neck: Supple. No lymphadenopathy or masses. Cardiac: Regular rate and rhythm. S1 and S2 normal. Lungs: Lungs are clear to auscultation bilaterally. Abdomen: Laparoscopic incisions intact with dermabond. Abdomen is soft and tender to palpation. Extremities: No lower extremity edema. DP and PT palpable bilaterally. Neurological: Alert and oriented x3. No focal neurological deficits noted. Speech is clear. Skin: Warm and dry. Psychiatric: Judgment and insight intact. Mood and affect normal. DS: Data Data Completed and Pending Pending studies at discharge: Pending at discharge 07/19/19 13:09 Surgical [PTH] Routine Labs on day of discharge: Labs from last 24 hours 07/20/19 07/20/19 05:40 05:40 WBC 5.5 RBC 3.59 L Hgb 10.9 L Hct 32.9 L MCV 91.6 MCH 30.4 MCHC 33.1 RDW 12.1 Plt Count 158 MPV 10.4 Sodium 139 Potassium 3.5 Chloride 111 H Carbon Dioxide 23 BUN 4 L Creatinine 0.70 Estim Creat Clear Calc 90 Estimated GFR > 60 Glucose 88 Calcium 8.3 L Total Bilirubin 0.5 AST 42 H ALT 31 Alkaline Phosphatase 75 Total Protein 6.0 L Albumin 3.3 L Imaging Radiologist's impression: ITS Impressions Abdomen/Pelvis CT 07/17/19 10:58 IMPRESSION: 1. Small sliding hiatal hernia. 2. Gallbladder distention, which may be secondary to fasting. Correlate with physical exam to exclude acute cholecystitis. Upper Quadrant Ultrasound 07/17/19 14:50 IMPRESSION: 1. Moderately distended, but otherwise unremarkable gallbladder.
== END 2019-07-20 13:45 | disposition home or self-care (01) | DRG 419 ==
LOC: ANHED 15:21 → ANH3MEDSUR 15:26
PROVIDERS: Physician Assistant; Surgery; Admitting Provider Internal Medicine; Emergency Provider Emergency Medicine; PCP Family Medicine; Visit Provider Internal Medicine
PROC: 0FT44ZZ Resection of Gallbladder, Percutaneous Endoscopic Approach (ICD-10-PCS; CPT 47562; principal; 2019-07-19 11:30)
DX: K81.0 Acute cholecystitis (principal); G35 Multiple sclerosis; G43.909 Migraine, unspecified, not intractable, without status migrainosus; E03.9 Hypothyroidism, unspecified; Z87.11 Personal history of peptic ulcer disease; Z86.010 Personal history of colon polyps; F41.8 Other specified anxiety disorders; Z87.440 Personal history of urinary (tract) infections; Z87.891 Personal history of nicotine dependence; M79.7 Fibromyalgia
CPT/HCPCS: 36415; 74177; 76705; 78226; 80053; 81001; 81025; 83690; 83735; 84443; 85025; 85027; 85610; 85730; 88304; 96361; 96374; 96375; 96376; 99285; A9270; A9537; C1713; C9113; J0131; J0690; J1100; J1170; J1885; J2175; J2250; J2270; J2405; J2704; J2710; J3010; J3360; J7030; J7120; Q9967

== ENCOUNTER 2020-02-13 07:59 | Outpatient (NON) | payer OTHER, MEDICARE, SELFPAY ==
[2020-02-13 17:23] LABS: SARS-CoV-2 RNA PCR Negative
== END 2020-02-13 08:00 ==
PROVIDERS: PCP Family Medicine; Visit Provider Nurse Practitioner Family
DX: Z20.828 Contact with and (suspected) exposure to other viral communicable diseases (principal); J02.9 Acute pharyngitis, unspecified
CPT/HCPCS: 87635; C9803; U0003

== ENCOUNTER → 2021-04-06 09:43 | Outpatient (CLI) | payer OTHER, MEDICARE, SELFPAY ==
[2021-04-06 18:06] LABS: Influenza Control Positive
[2021-04-07 03:58] LABS: SARS-CoV-2 RNA PCR Positive
== END ==
PROVIDERS: PCP Family Medicine; Visit Provider Physician Assistant
DX: R05.9 Cough, unspecified (principal); R50.9 Fever, unspecified; R68.89 Other general symptoms and signs; U07.1 COVID-19
CPT/HCPCS: 87804; C9803; U0003; U0005

== ENCOUNTER 2021-05-27 16:21 | Emergency (ER) | payer OTHER, MEDICARE, SELFPAY ==
[2021-05-27 16:42] VITALS: BP 110/77; PULSE 69; RESP 18; TEMP 37.1; O2SAT 100
--- NOTE | 2021-05-27 16:46 | ED.URI ---
HPI - URI/Sore Throat General Chief Complaint: Upper Respiratory Infection Stated Complaint: Sore Throat, Headache, Bilateral Ear Pain Source: patient and RN notes reviewed Mode of arrival: ambulatory History of Present Illness HPI Narrative: This is a 36-year-old female who presented to urgent care with complaints of a swollen throat, difficulty swelling, and runny nose, that started last night. Patient did not take anything at home to relieve her symptoms. Patient has negative contact with her symptomatic strep positive. The patient denies SOB, CP, palpitation, extremity numbness, lightheadedness, dizziness, constipation, diarrhea, chills, or fever. Patient did test positive for strep today Related Data Home Medications Medication Instructions Recorded Confirmed baclofen 10 mg tablet 10 mg PO TID 05/21/19 05/27/21 cholecalciferol (vitamin D3) 1,250 50,000 unit PO WEEKLY 05/21/19 05/27/21 mcg (50,000 unit) capsule clonazepam 1 mg PO PRN PRN 05/27/21 05/27/21 duloxetine 60 mg PO DAILY 05/27/21 05/27/21 fingolimod [Gilenya] 0.5 mg PO DAILY 05/27/21 05/27/21 topiramate 200 mg PO DAILY 05/27/21 05/27/21 trazodone 50 mg PO HS 05/27/21 05/27/21 ubrogepant [Ubrelvy] 100 mg PO DAILY 05/27/21 05/27/21 Allergies Allergy/AdvReac Type Severity Reaction Status Date / Time cefaclor Allergy Mild Hives Verified 05/27/21 16:34 adhesive tape AdvReac Mild Rash Verified 05/27/21 16:34 Review of Systems Review of Systems: A 14 organ system Review of Systems was performed and pertinent positives included in the HPI, otherwise remaining ROS is negative. [facility] Past Medical History Medical History Anxiety Colon polyp History of benign colon polyp on colonoscopy per Dr. June in 2013. Exposure to communicable disease Fracture of left clavicle Gastric ulcer Hypothyroidism Major depressive disorder, single episode, unspecified Migraine, unspecified, not intractable, without status migrainosus Multiple sclerosis UTI (urinary tract infection) Surgical History Surgical History History of appendectomy History of elective section History of endometrial ablation Family History Family History Mother Fibromyalgia Breast cancer Grandparent Lung cancer Rheumatoid arthritis Social History Social History Social History: The patient is and lives with her and 3 of her children, ages 15, 8, and 6, in [facility]. Another child lives with their father. She is a former smoker, smoking perhaps a half a pack of cigarettes per day for 3 years. She denies alcohol use. Previously used marijuana. She designates her , Karen, as her surrogate decision maker and wishes to be a full code. Smoking packs per day: 0.5 Smoking cigarettes per day: 10.0 Years smoked: 3 Smoking pack-years: 1.50 Smoking status: Former smoker Tobacco type: cigarettes Smoking end date: 04/10/04 Alcohol intake: former Substance use: never Substance use type: marijuana Gender identity (if verbalized by the patient): Female Spiritual care concerns: Yes Agree to blood products: Yes Exam Narrative: GENERAL: This is a well-nourished, well-developed patient, in no apparent distress. HEAD: normocephalic, atraumatic. EYES: PERRL. Sclera clear/white. Vision is grossly intact. EARS: External ears normal, auditory canals clear and without drainage, TMs normal without perforation. Hearing grossly intact. NOSE: External nose normal with no obvious nasal discharge, nares without redness, no rhinorrhea. THROAT: Mucous membranes moist, posterior pharynx edema erythematous tonsils absent. NECK: Neck supple, non-tender without lymphadenopathy, masses or thyromegaly. CARDIOVASCULAR: Regular ra
[2021-05-27 16:48] VITALS: BP 110/77; PULSE 69; RESP 18; TEMP 37.1; O2SAT 100
== END 2021-05-27 17:04 | disposition home or self-care (01) ==
PROVIDERS: Emergency Provider Nurse Practitioner; PCP Family Medicine
DX: J02.0 Streptococcal pharyngitis (principal); Z87.891 Personal history of nicotine dependence; E03.9 Hypothyroidism, unspecified; G35 Multiple sclerosis; F41.9 Anxiety disorder, unspecified; F32.9 Major depressive disorder, single episode, unspecified
CPT/HCPCS: 87880; 99213; G0463

== ENCOUNTER 2021-08-19 10:16 | Outpatient (CLI) | payer OTHER, MEDICARE, SELFPAY ==
--- NOTE | ~2021-08-19 | CT_ITS ---
EXAMINATION: CT abdomen pelvis wo con DATE: 08/19/2021 10:36 INDICATION: Right lower quadrant pain TECHNIQUE: Computed tomography (CT) of the abdomen and pelvis was performed without intravenous contr ast. The dose-length product (DLP) was 334.71 mGy-cm. Automated exposure control and iterative recons truction technique were employed. COMPARISON: 07/17/2019 FINDINGS: The lung bases are clear. The heart size is normal. The gallbladder is surgically absent. T he liver, spleen, pancreas, and adrenal glands are normal. The kidneys are unremarkable. No stones ar e identified in the kidneys, ureters, or bladder. There is no hydronephrosis or hydroureter. The appe ndix is not well delineated however no significant inflammatory change is seen in the right lower judith drant. A moderate volume of colonic stool is present. IMPRESSION: 1. No CT correlate for the patient's symptoms. Reviewed, dictated and finalized at location A.
== END 2021-08-19 10:17 | disposition home or self-care (01) ==
PROVIDERS: PCP Family Medicine; Visit Provider Physician Assistant
DX: R10.31 Right lower quadrant pain (principal); N39.0 Urinary tract infection, site not specified; N20.0 Calculus of kidney
CPT/HCPCS: 74176

== ENCOUNTER 2022-07-13 10:13 | Observation (INO) | payer OTHER, MEDICARE, SELFPAY ==
[2022-07-13] VITALS (43 sets, daily range): BP systolic 80–120; BP diastolic 50–88; PULSE 55–89; RESP 11–31; TEMP 36.9–37.1; O2SAT 86–100; BMI 24.5
--- NOTE | 2022-07-13 10:31 | ECG_ITS ---
Measurements Intervals [place] Rate: 63 P: 46 TX: 148 QRS: 52 QRSD: 97 T: 40 QT: 393 QTc: 404 Interpretive Statements SINUS RHYTHM NONSPECIFIC T-WAVE ABNORMALITY ABNORMAL ECG COMPARED TO ECG 10/15/2018 23:38:00 NO SIGNIFICANT CHANGES Electronically Signed On 07-13-2022 13:52:26 CDT by Adrien Mckeon M.D.
--- NOTE | 2022-07-13 10:34 | PC.NURSE ---
Spoke with Poison Control, Jessi - states peak in 1-4 hours but may take a little longer than usual, half-life of so many pills is 30-40 hours
--- NOTE | 2022-07-13 10:44 | ED.OVERDOSE ---
HPI - Overdose General Chief Complaint: Overdose Stated Complaint: overdose on clonazepam 1mg bottle Time Seen by Provider: 07/13/22 10:28 History of Present Illness HPI Narrative: Pt took a handfull of her klonopin to sleep. Pt says she was arguing with her and says the way he leaves her alone is if she takes a nap. Pt says she wanted to escape. Pt says she was not trying to kill herself. Pt has no explanation for why she took a large number of the pills to sleep. Pt had 90 1 mg klonopin Rx on 06/30 filled and container empty today per EMS. Related Data Home Medications Medication Instructions Recorded Confirmed cholecalciferol (vitamin D3) 1,250 50,000 unit PO WEEKLY 05/21/19 07/13/22 mcg (50,000 unit) capsule clonazepam 1 mg tablet 1 mg PO PRN PRN Anxiety 05/27/21 07/13/22 duloxetine 60 mg capsule,delayed 60 mg PO DAILY 05/27/21 07/13/22 release fingolimod 0.5 mg capsule (Gilenya) 0.5 mg PO DAILY 05/27/21 07/13/22 topiramate 200 mg tablet 200 mg PO DAILY 05/27/21 07/13/22 trazodone 50 mg tablet 50 mg PO HS 05/27/21 07/13/22 ubrogepant 100 mg tablet (Ubrelvy) 100 mg PO DAILY 05/27/21 07/13/22 Allergies Allergy/AdvReac Type Severity Reaction Status Date / Time cefaclor Allergy Mild Hives Verified 08/19/21 09:23 adhesive tape AdvReac Mild Rash Verified 08/19/21 09:23 Review of Systems Review of Systems: All systems reviewed & are unremarkable except as noted in HPI and below PMFSH Past Medical History Medical History (Updated 07/13/22 @ 12:53 by Padilla Beckwith MD) Anxiety Colon polyp History of benign colon polyp on colonoscopy per Dr. June in 2013. Exposure to communicable disease Fracture of left clavicle Gastric ulcer Hypothyroidism Major depressive disorder, single episode, unspecified Migraine, unspecified, not intractable, without status migrainosus Multiple sclerosis UTI (urinary tract infection) Surgical History Surgical History History of appendectomy History of elective section History of endometrial ablation Family History Family History Mother Fibromyalgia Breast cancer Grandparent Lung cancer Rheumatoid arthritis Social History Social History (Updated 07/13/22 @ 12:39 by Padilla Beckwith MD) Social History: The patient is and lives with her and 3 of her children, ages 15, 8, and 6, in [facility]. Another child lives with their father. She is a former smoker, smoking perhaps a half a pack of cigarettes per day for 3 years. She denies alcohol use. Patient confirms vaping and marijuana use. She designates her , Karen, as her surrogate decision maker and wishes to be a full code. Smoking packs per day: 0.5 Smoking cigarettes per day: 10.0 Years smoked: 3 Smoking pack-years: 1.50 Tobacco type: cigarettes Smoking end date: 04/10/04 Alcohol intake: former Substance use: current Substance use type: marijuana and prescription drug Living arrangements: with family Occupation/Education: unemployed Additional occupation/education comments: Disabled Gender identity (if verbalized by the patient): Female Sexual Orientation (if Verbalized by the Patient): Straight or Heterosexual Spiritual care concerns: Yes Agree to blood products: Yes Exam Const: General: healthy appearing Nutritional Appearance: well nourished Orientation/consciousness: patient oriented x3 Limitations: behavioral limitations (a little drwosy and evasive with questions) Eyes: Pupils: Equal, round and reactive pupils present EOM: EOMs intact bilaterally Neck: Neck: normal visual inspection, no lymphadenopathy and no meningeal signs Resp: Effort & Inspection: normal respiratory effort Auscultation: clear to auscultation bilaterally Cardio: Rate: regular rate Rhythm: regular rhythm GI: GI Palp: Yes Soft to palpation
[2022-07-13 11:03] LABS: Alanine Aminotransferase 22 U/L (6-35); Albumin Level 4.3 g/dL (3.5-5.1); Alkaline Phosphatase 91 U/L (38-126); Anion Gap 5 mmol/L (8-16); Aspartate Amino Transferase 23 U/L (14-36); Bilirubin,Total 0.5 mg/dL (0.2-1.3); Blood Urea Nitrogen 10 mg/dL (7-17); Calcium 8.5 mg/dL (8.4-10.2); Carbon Dioxide 24 mmol/L (22-30); Chloride 110 mmol/L (98-107); Estimated CRCL calculation 78 ml/min; Estimated Glomerular Filt Rate > 60; Glucose 88 mg/dL (65-110); Potassium 3.9 mmol/L (3.4-5.0); Sodium 139 mmol/L (137-145)
[2022-07-13 11:04] LABS: Acetaminophen < 10 ug/mL (10-30); Ethanol < 10 mg/dL (<10); Salicylate < 1.0 mg/dL (2-20)
[2022-07-13 11:07] LABS: Eosinophils Percent Auto 1.5 % (0-4.4); Hematocrit 36.2 % (37.0-47.0); Hemoglobin 11.9 g/dL (12.0-15.0); Lymphocytes Absolute Auto 0.35 K/mm3 (0.9-3.2); Lymphocytes Percent Auto 17.9 % (18.3-44.2); Mean Corpuscular HGB Conc 32.9 g/dl (32-36); Mean Corpuscular Hemoglobin 31.2 pg (26-34); Mean Corpuscular Volume 94.8 fl (80-100); Mean Platelet Volume 9.9 fl (7.4-10.4); Monocytes Absolute Auto 0.3 K/mm3 (0.1-0.6); Monocytes Percent Auto 15.3 % (2.6-8.5); Neutrophils Absolute Auto 1.3 K/mm3 (1.3-6.7); Neutrophils Percent Auto 64.3 % (45.5-73.1); Platelet Count Result 177 k/mm3 (150-375); Red Blood Count 3.82 M/mm3 (4.2-5.4); Red Cell Distribution Width 12.7 % (11.5-14.5)
[2022-07-13] MEDS: ACETAMINOPHEN 500 MG TABLET 1000 MG PO (11:32)
[2022-07-13 11:37] LABS: SARS-CoV-2 RNA PCR Negative
[2022-07-13 12:17] LABS: Appearance Urine Clear (Clear); Bacteria Urine None Seen /hpf; Bilirubin Urine Negative (Negative); Blood Urine Negative (Negative); Color Urine Yellow (Yellow); Glucose Urine UA Negative (Negative); Ketones Urine Negative (Negative); Leukocyte Esterase Ur Trace LEU/UL (Negative); Nitrate Urine Negative (Negative); Non Pathogenic Casts 0-2; Protein Urine Negative (Negative); RBC Urine 0-2 /hpf (0-2); Specific Grav Ur 1.016 (1.001-1.035); Squamous Epithelial Cell Urine None seen /hpf (Few); WBC Urine 0-5 /hpf
--- NOTE | 2022-07-13 12:28 | PC.NURSE ---
Jessi from poison control given patient update.
[2022-07-13 12:35] LABS: Amphetamine Screen Urine Negative (Negative); Barbiturate Screen Urine Negative (Negative); Benzodiazepines Screen Urine Negative (Negative); Cannabinoid Screen Urine Positive (Negative); Cocaine Screen Urine Negative (Negative); Methadone Screen Urine Negative (Negative); Opiate Screen Urine Negative (Negative); Phencyclidine Screen Urine Negative (Negative)
--- NOTE | 2022-07-13 12:35 | WPDCNINT ---
Assessment and Plan Assessment and plan (1) Benzodiazepine overdose: Code(s): T42.4X1A - Poisoning by benzodiazepines, accidental (unintentional), initial encounter Status: Acute Assessment and Plan: Patient took unknown amount of Klonopin pills. Currently awake alert oriented x3 Poison control was notified in the ER Admitted to IMU for close monitoring Suicide precautions and sitter at bedside. Patient will be evaluated by Psychiatry once medically clear EKG shows sinus rhythm Urine drug screen is positive for cannabinoids and salicylate Tylenol and alcohol levels are negative (2) Suicide attempt by benzodiazepine overdose: Code(s): T42.4X2A - Poisoning by benzodiazepines, intentional self-harm, initial encounter Status: Acute Assessment and Plan: See above (3) Hypothyroidism: Code(s): E03.9 - Hypothyroidism, unspecified Status: Chronic Assessment and Plan: Continue levothyroxine (4) Leukopenia: Code(s): D72.819 - Decreased white blood cell count, unspecified Status: Acute Assessment and Plan: Patient has chronic leukopenia which is likely secondary to fingolimod and is not significantly changed from baseline. Continue monitor. (5) Migraine, unspecified, not intractable, without status migrainosus: Code(s): G43.909 - Migraine, unspecified, not intractable, without status migrainosus Status: Acute Assessment and Plan: Patient fairly comfortable during the exam with no distress or abnormal vital signs. She is currently complaining of headache and nausea. Will give toradol IV x1 followed by p.r.n. Tylenol and ibuprofen at this time P.r.n. Zofran for nausea (6) Depression: Code(s): F32.A - Depression, unspecified Status: Acute Assessment and Plan: Patient has history of depression and was admitted to inpatient psychiatry in 2021 Continue current depression medication Will consult Psychiatry once medically cleared Plan DVT prophylaxis -SCDs Nutrition -regular diet Code Status - Full Code Family updated at bedside Sporting Goods Salesperson Consult Note Consult date: 07/13/22 Reason for consult: Drug overdose HPI: Jodee Vasquez is a 37 year old female with past medical history of depression, migraines, MS, hypothyroidism, and fibromyalgia presented to ER after taking a handful of Klonopin pills after having an argument with her . Patient was apparently doing fine with no symptoms and she had argument with her . After argument states she took and full of her Klonopin pills. She has not sure how many pills she took. She states she was trying to go to sleep. states that pills were taken around 10:15 a.m.. She is prescribed Klonopin for sleep. She states that she has had tried to cut herself in the past and has depression and is on treatment for it. She states she was crying a lot after argument and now is having migraine headache. She states that she gets frequent migraines about once a week and are precipitated by prolonged crying. Headache is 9/10, band like quality, no radiation associated with nausea and is similar to her migraine headaches.. She denies any other complaint and all other systems were reviewed and were negative. Review of Systems Review of Systems: All systems reviewed & are unremarkable except as noted in HPI and below (HPI) [facility] Past Medical History Medical History (Updated 07/13/22 @ 12:53 by Padilla Beckwith MD) Anxiety Colon polyp History of benign colon polyp on colonoscopy per Dr. June in 2013. Exposure to communicable disease Fracture of left clavicle Gastric ulcer Hypothyroidism Major depressive disorder, single episode, unspecified Migraine, unspecified, not intractable, without status migrainosus Multiple sclerosis UTI (urinary tract infection) Surgical History Surgical History History of appende
[2022-07-13 12:45] LABS: Add Urine Microscopic? YES
--- NOTE | 2022-07-13 13:48 | ADMIMU ---
This patient, Jodee Vasquez, was admitted to IMU status, and placed in Intensive Care Unit-8. Patient/family oriented to hospital policies and general routines including ID bracelet, bed and alarms, visiting hours, pain management, procedures, bathroom and other care routines, personal items, smoking policy, room service/diet, and visiting hours. Valuables list has been completed. Information on how to activate the Rapid Response Team has been discussed. Patient/Family are encouraged to report perceived risks to care and to ask questions if they do not understand what they are told or what they should do.
[2022-07-13] MEDS: KETOROLAC 15 MG/ML VIAL (*BKC) IV PUSH (14:52)
--- NOTE | 2022-07-13 15:05 | PM.IMHP ---
H&P: HPI History of Present Illness Date/Time: 07/13/22 15:05 Chief Complaint: Drug overdose. Narrative: This is a 37-year-old female with multiple sclerosis, migraine headaches, hypothyroidism, fibromyalgia, anxiety, and depression who presented to the emergency department from home for evaluation after taking a handful of clonazepam following an argument with her . Patient provides the following history. She is not sure how many pills she took but her clonazepam bottle was empty according to EMS. She last had clonazepam refilled on 06/30/2022 at which time she was dispensed 90, 1 mg tablets which she is to take 3 times a day. She denies that she took them in an attempt to end her life and instead says she took them so she could fall asleep because ?that is the only time my leaves me alone.? She admits that she is stressed and depressed. Since her MS diagnosis she has gotten progressively worse over the years and she is now on able to work and is on disability. She has 3 children at home and she cannot even enjoy a playing with them due to the MS. Additionally she feels isolated as she is no longer living in the same town as her friends and she does not feel as though she has a support system. She has been stable since arrival to the ED. Blood pressures have been at the low end of normal which is not necessarily unusual for her. Baseline heart rate is in the 50s to 60s and that it remains unchanged. She has been sleeping a majority of the day and she has no specific complaints. She denies fever, chills, sweats, chest pain, shortness a breath, nausea, vomiting, diarrhea, and dysuria. Review of Systems Review of Systems: Twelve systems were reviewed and are negative except for as per HPI. [facility] Past Medical History Medical History (Updated 07/13/22 @ 15:14 by Ro Green PA-C) Anxiety Colon polyp History of benign colon polyp on colonoscopy per Dr. June in 2013. Fibromyalgia Fracture of left clavicle Gastric ulcer Hypothyroidism Major depressive disorder, single episode, unspecified Migraine, unspecified, not intractable, without status migrainosus Multiple sclerosis Surgical History Surgical History (Updated 07/13/22 @ 15:12 by Ro Green PA-C) History of appendectomy History of colonoscopy with polypectomy History of elective section History of endometrial ablation History of laparoscopic cholecystectomy Family History Family History Mother Fibromyalgia Breast cancer Grandparent Lung cancer Rheumatoid arthritis Social History Social History (Updated 07/13/22 @ 15:13 by Ro Geren PA-C) Social History: Surrogate medical decision maker: Karen Vasquez, spouse. Code status: Full code. Smoking packs per day: 0.5 Smoking cigarettes per day: 10.0 Years smoked: 3 Smoking pack-years: 1.50 Smoking status: Former smoker Tobacco type: cigarettes and e-cigarettes/vaping Second hand tobacco smoke exposure: No Smoking end date: 07/09/22 Alcohol intake: former Substance use: current Substance use type: marijuana Lack of Transportation: No Lack of Food: Never True Current Housing: I Have Housing Concerned About Future Housing: Decline to Answer Difficulty Paying Gas/Electric Bills: No Difficulty Paying for Meds: No Currently Unemployed: No Education: Associate Degree Difficulty w/ Childcare or Family Care: No Living arrangements: with family Occupation/Education: unemployed Additional occupation/education comments: Disabled. Spiritual care concerns: No Agree to blood products: Yes Meds Home Medications and Allergies Home Medications Medication Instructions Recorded Confirmed Type cholecalciferol (vitamin D3) 1,250 50,000 unit PO WEEKLY 05/21/19 07/13/22 History mcg (50,000 unit) capsule carbamazepine 200 mg tablet 200 mg PO Q12H #180 tabs 0
--- NOTE | 2022-07-13 18:44 | PC.NURSE ---
Called patients to bring in fingolimod and ubrogepant from home.
[2022-07-13] MEDS: ACETAMINOPHEN 325 MG TABLET 650 MG PO (23:44)
[2022-07-14] VITALS (78 sets, daily range): BP systolic 85–100; BP diastolic 49–69; PULSE 51–68; RESP 10–29; TEMP 36.6–37.2; O2SAT 100
[2022-07-14 04:30] LABS: Hematocrit 35.4 % (37.0-47.0); Hemoglobin 11.4 g/dL (12.0-15.0); Immature Granulocyte Absolute 0.01 K/mm3 (0.00-0.031); Immature Granulocyte Percent A 0.5 % (0-0.5); Lymphocytes Absolute Auto 0.36 K/mm3 (0.9-3.2); Lymphocytes Percent Auto 18.8 % (18.3-44.2); Mean Corpuscular HGB Conc 32.2 g/dl (32-36); Mean Corpuscular Hemoglobin 30.9 pg (26-34); Mean Corpuscular Volume 95.9 fl (80-100); Mean Platelet Volume 9.6 fl (7.4-10.4); Monocytes Absolute Auto 0.3 K/mm3 (0.1-0.6); Monocytes Percent Auto 14.1 % (2.6-8.5); Neutrophils Absolute Auto 1.2 K/mm3 (1.3-6.7); Neutrophils Percent Auto 64.6 % (45.5-73.1); Platelet Count Result 179 k/mm3 (150-375); Red Blood Count 3.69 M/mm3 (4.2-5.4); Red Cell Distribution Width 12.6 % (11.5-14.5)
[2022-07-14 04:52] LABS: Alanine Aminotransferase 22 U/L (6-35); Albumin Level 3.8 g/dL (3.5-5.1); Alkaline Phosphatase 79 U/L (38-126); Anion Gap 6 mmol/L (8-16); Aspartate Amino Transferase 23 U/L (14-36); Bilirubin,Total 0.5 mg/dL (0.2-1.3); Blood Urea Nitrogen 10 mg/dL (7-17); Calcium 8.1 mg/dL (8.4-10.2); Carbon Dioxide 21 mmol/L (22-30); Chloride 110 mmol/L (98-107); Estimated CRCL calculation 78 ml/min; Estimated Glomerular Filt Rate > 60; Glucose 90 mg/dL (65-110); Magnesium 2.2 mg/dL (1.6-2.3); Potassium 3.8 mmol/L (3.4-5.0); Sodium 137 mmol/L (137-145)
[2022-07-14 04:58] LABS: White Blood Count 1.9 K/mm3 (4.5-10.0)
[2022-07-14] MEDS: TOPIRAMATE 100 MG TABLET 200 MG PO (08:10)
[2022-07-14] MEDS: DULoxetine HCL 60 MG CAPSULE.DR PO ×2 (08:11→09:51)
[2022-07-14] MEDS: carBAMazepine 200 MG TABLET PO ×2 (08:11→20:15)
--- NOTE | 2022-07-14 08:58 | PHAR ---
Home meds verified: Fingolimod 0.5mg caps take 1 capsule PO Daily Ubrelvy 100mg x1 tablet
--- NOTE | 2022-07-14 11:37 | PC.NURSE ---
Called poison control and spoke with Eduardo a pharmacist, stated that case #[id number] was closed 07/13/2022 @ 2049.
--- NOTE | 2022-07-14 11:43 | PM.IMPN ---
Progress Note: A&P Assessment and Plan (1) Clonazepam overdose of undetermined intent: Code(s): T42.4X4A - Poisoning by benzodiazepines, undetermined, initial encounter Status: Acute Assessment and Plan: Unclear if this was intentional or not. She denies that she was trying to harm herself at this time, tells me she was just trying to sleep. It seems as though she took an awful amount of clonazepam however given the time frame in which her prescription was filled. She is being monitored on telemetry and a sitter is in the room for suicide precautions. She will need a crisis evaluation once medically stable. (2) Leukopenia: Code(s): D72.819 - Decreased white blood cell count, unspecified Status: Acute Assessment and Plan: An ongoing finding for this patient, stable. Suspect related to fingolimod. Chronic leukopenia remains stable he (3) Depression: Code(s): F32.A - Depression, unspecified Status: Acute Assessment and Plan: Longstanding history of depression, admitted to inpatient psychiatry in 2021. Continue duloxetine. crisis team to see once medically stable. (4) Migraine, unspecified, not intractable, without status migrainosus: Code(s): G43.909 - Migraine, unspecified, not intractable, without status migrainosus Status: Acute Assessment and Plan: Continue migrate medication as needed. (5) Multiple sclerosis: Code(s): G35 - Multiple sclerosis Status: Chronic Assessment and Plan: Continue home medication. (6) Hypothyroidism: Code(s): E03.9 - Hypothyroidism, unspecified Status: Chronic Assessment and Plan: Continue levothyroxine and TSH normal Plan Accidental use of diltiazem blood pressure low normal mildly bradycardic but sinus. Continue to monitor on telemetry Subjective Date/time seen: 07/14/22 11:43 Interval history: History reviewed. No overnight events. Discussed with nursing staff. Vitals reviewed. Labs reviewed. Patient took handful of Klonopin to sleep. Her argument with all 90 of 1 mg Klonopin filled on 06/30 was empty however had unknown amount of Klonopin pills taken. Accidental use of diltiazem instead of duloxetine this morning. Review of Systems Review of Systems: All systems reviewed & are unremarkable except as noted in HPI and below (HPI) Exam Narrative: General: Well-developed, nontoxic-appearing female supine in bed. HEENT: Normocephalic, atraumatic. PERRL, EOMI. Sclera anicteric. Tacky mucous membranes. Neck: Supple. Respiratory: Lungs are clear to auscultation bilaterally. Cardiovascular: Bradycardic with normal S1-S2. Gastrointestinal: Abdomen is soft, nontender, and nondistended with positive bowel sounds. Skin: Warm and dry. No rash or lesions on limited exam. Extremities: No cyanosis, clubbing, or edema. Radial and pedal pulses intact. Neurological: Alert. Cranial nerves 2-12 are grossly intact. No gross focal deficits to casual conversation. Psychiatric: Cooperative. Depressed mood and flat affect. Despondent. Objective Data Vital Signs Vital Signs: Vital Signs - 24 hr 07/13/22 11:59 07/13/22 12:02 07/13/22 12:05 Temperature Pulse Rate 67 63 62 Respiratory Rate 14 13 11 L Blood Pressure 104/73 Pulse Oximetry Oxygen Delivery 07/13/22 12:37 07/13/22 12:45 07/13/22 13:03 Temperature Pulse Rate 61 58 L Respiratory Rate 16 22 H 16 Blood Pressure Pulse Oximetry Oxygen Delivery 07/13/22 16:00 07/13/22 14:15 07/13/22 14:00 Temperature 98.4 F 98.4 F Pulse Rate 57 L 60 60 Respiratory Rate 24 H 20 Blood Pressure 100/61 96/55 L Pulse Oximetry 99 100 Oxygen Delivery 07/13/22 16:00 07/13/22 16:00 07/13/22 18:00 Temperature Pulse Rate 63 63 58 L Respiratory Rate 15 Blood Pressure Pulse Oximetry 100 Oxygen Delivery Room Air 07/13/22 13:20 07/13/22 14:15
--- NOTE | 2022-07-14 14:40 | PC.NURSE ---
Spoke with patients , Karen. Karen stated that he spoke with Jodee's counselor and her counselor recommended that he advocates for her to remain hospitalized . Karen stated that Jodee is irrational and not making any sense . Karen also stated that the patient has a support system and that she will try and deny that she has resources .
[2022-07-14] MEDS: IBUPROFEN 400 MG TABLET PO (20:15)
[2022-07-15] VITALS (7 sets, daily range): BP systolic 81–92; BP diastolic 48–55; PULSE 53–66; RESP 12–16; TEMP 36.7–37.3; O2SAT 98–100
[2022-07-15 04:31] LABS: Basophils Percent Auto 1.3 % (0.2-1.2); Eosinophils Percent Auto 1.7 % (0-4.4); Hematocrit 37.4 % (37.0-47.0); Immature Granulocyte Absolute 0.01 K/mm3 (0.00-0.031); Immature Granulocyte Percent A 0.4 % (0-0.5); Lymphocytes Absolute Auto 0.43 K/mm3 (0.9-3.2); Lymphocytes Percent Auto 18.4 % (18.3-44.2); Mean Corpuscular HGB Conc 32.1 g/dl (32-36); Mean Corpuscular Hemoglobin 30.5 pg (26-34); Mean Corpuscular Volume 95.2 fl (80-100); Mean Platelet Volume 9.7 fl (7.4-10.4); Monocytes Absolute Auto 0.3 K/mm3 (0.1-0.6); Monocytes Percent Auto 14.5 % (2.6-8.5); Neutrophils Absolute Auto 1.5 K/mm3 (1.3-6.7); Neutrophils Percent Auto 63.7 % (45.5-73.1); Platelet Count Result 204 k/mm3 (150-375); Red Blood Count 3.93 M/mm3 (4.2-5.4); Red Cell Distribution Width 12.6 % (11.5-14.5); White Blood Count 2.3 K/mm3 (4.5-10.0)
[2022-07-15 04:42] LABS: Alanine Aminotransferase 24 U/L (6-35); Alkaline Phosphatase 79 U/L (38-126); Anion Gap 6 mmol/L (8-16); Aspartate Amino Transferase 28 U/L (14-36); Bilirubin,Total 0.5 mg/dL (0.2-1.3); Blood Urea Nitrogen 12 mg/dL (7-17); Calcium 8.3 mg/dL (8.4-10.2); Carbon Dioxide 24 mmol/L (22-30); Chloride 110 mmol/L (98-107); Estimated CRCL calculation 70 ml/min; Estimated Glomerular Filt Rate > 60; Glucose 92 mg/dL (65-110); Magnesium 2.3 mg/dL (1.6-2.3); Potassium 4.3 mmol/L (3.4-5.0); Sodium 140 mmol/L (137-145)
[2022-07-15] MEDS: LEVOTHYROXINE SODIUM 112 MCG TABLET BY MOUTH (06:31)
[2022-07-15] MEDS: carBAMazepine 200 MG TABLET PO (09:10)
[2022-07-15] MEDS: DULoxetine HCL 60 MG CAPSULE.DR 120 MG PO (09:11)
[2022-07-15] MEDS: TOPIRAMATE 100 MG TABLET 200 MG PO (09:11)
--- NOTE | 2022-07-15 12:55 | PM.DS ---
DS: Admitting Diagnosis Discharge Date 07/15/2022 Admitting Diagnosis clonazepam overdose DS: Summary Hospital Course Hospital Course: # Clonazepam overdose of undetermined intent: Unclear if this was intentional or not. She denies that she was trying to harm herself at this time, states that she was just trying to sleep. It seems as though she took an awful amount of clonazepam however given the time frame in which her prescription was filled. She is being monitored on telemetry and a sitter is in the room for suicide precautions. since stable from poison Control standpoint. Evaluated by crisis team and will be followed up as an outpatient basis # Leukopenia: An ongoing finding for this patient, stable. Suspect related to fingolimod. Chronic leukopenia remains stable # Depression: Longstanding history of depression, admitted to inpatient psychiatry in 2021. Continue duloxetine. crisis team to see once medically stable.? crisis team evaluated the patient prior to the discharge # Migraine, unspecified, not intractable, without status migrainosus: Continue migrate medication as needed. # Multiple sclerosis: Continue home medication. # Hypothyroidism: Continue levothyroxine and TSH normal # Accidental use of diltiazem blood pressure low normal mildly bradycardic but sinus.? Continue to monitor on telemetry and remained stable Time Spent with Patient Time attestation: Total time spent providing and/or coordinating discharge services: 45 minutes DS: Data Data Completed and Pending Labs on day of discharge: Labs from last 24 hours 07/15/22 07/15/22 04:26 04:26 WBC 2.3 L RBC 3.93 L Hgb 12.0 Hct 37.4 MCV 95.2 MCH 30.5 MCHC 32.1 RDW 12.6 Plt Count 204 MPV 9.7 Immature Gran % (Auto) 0.4 Neut % (Auto) 63.7 Lymph % (Auto) 18.4 Shelby % (Auto) 14.5 H Eos % (Auto) 1.7 Baso % (Auto) 1.3 H Lymph # (Auto) 0.43 L [place] # (Auto) 0.3 Eos # (Auto) 0.0 Baso # (Auto) 0.0 Abs Immat Gran (auto) 0.01 Absolute Neuts (auto) 1.5 Absolute Nucleated RBC 0.0 Nucleated RBC % 0.0 Sodium 140 Potassium 4.3 Chloride 110 H Carbon Dioxide 24 Anion Gap 6 L BUN 12 Creatinine 0.90 Estim Creat Clear Calc 70 Estimated GFR > 60 Glucose 92 Calcium 8.3 L Magnesium 2.3 Total Bilirubin 0.5 AST 28 ALT 24 Alkaline Phosphatase 79 Total Protein 7.0 Albumin 4.0 Discharge Plan Discharge Attending physician on discharge: Paco Clemons Discharging Clinician: Paco Clemons Anticipated Discharge Date/Time: 07/15/22 12:54 Patient Disposition: Home, Self-Care Activity: as tolerated Diet: regular Patient Instructions: Antibiotic Form, How to Stop Smoking (DC), Cigarette Smoking and Your Health (GEN) Stand Alone Forms: General Discharge Information Follow-up/Referrals: Michael Smith MD [Primary Care Provider] - 1 Week Discharge Medications: Continued trazodone 50 mg tablet 50 mg PO HS clonazepam 1 mg tablet 1 mg PO PRN PRN (Reason: Anxiety) topiramate 200 mg tablet 200 mg PO DAILY duloxetine 60 mg capsule,delayed release(DR/EC) 120 mg PO DAILY fingolimod [Gilenya] 0.5 mg capsule 0.5 mg PO DAILY Ubrelvy 100 mg tablet 100 mg PO DAILY cholecalciferol (vitamin D3) 1,250 mcg (50,000 unit) capsule 50,000 unit PO WEEKLY carbamazepine 200 mg tablet 200 mg PO Q12H Qty: 180 2RF albuterol sulfate 90 mcg/actuation HFA aerosol inhaler 1 puff inhalation Q4H PRN (Reason: shortness of breath or wheezing) Qty: 8.5 1RF buspirone 10 mg tablet 10 mg PO BID Qty: 180 2RF levothyroxine 112 mcg tablet See Rx Instructions .ROUTE .COMPLEX Qty: 90 2RF Dose Instruction: TAKE 1 TABLET BY MOUTH DAILY Rx Instructions: TAKE 1 TABLET BY MOUTH DAILY Date of admission: 07/13/22 12:42 Primary Care Provider: Michael Smith Admitting Provider: Gorge
== END 2022-07-15 13:15 | disposition home or self-care (01) ==
LOC: ANHED 12:41 → ANHICU 15:11
PROVIDERS: Internal Medicine; Admitting Provider Family Medicine; Emergency Provider Emergency Medicine; PCP Family Medicine; Visit Provider Internal Medicine
DX: T42.4X4A Poisoning by benzodiazepines, undetermined, initial encounter (principal); Y92.009 Unspecified place in unspecified non-institutional (private) residence as the place of occurrence of the external cause; F41.9 Anxiety disorder, unspecified; E03.9 Hypothyroidism, unspecified; F32.9 Major depressive disorder, single episode, unspecified; F32.A Depression, unspecified; Z20.822 Contact with and (suspected) exposure to COVID-19; G35 Multiple sclerosis; M79.7 Fibromyalgia; G43.909 Migraine, unspecified, not intractable, without status migrainosus; D72.829 Elevated white blood cell count, unspecified; R94.31 Abnormal electrocardiogram [ECG] [EKG]; F17.290 Nicotine dependence, other tobacco product, uncomplicated; F12.90 Cannabis use, unspecified, uncomplicated; Z79.899 Other long term (current) drug therapy; Z84.89 Family history of other specified conditions
CPT/HCPCS: 36415; 80053; 80307; 81001; 81025; 83735; 84443; 85025; 93005; 96374; 99285; A9270; G0378; J1885; U0003; U0005

== ENCOUNTER → 2023-02-10 16:02 | Outpatient (CLI) | payer OTHER, MEDICARE, SELFPAY ==
--- NOTE | ~2023-02-10 | MM_ITS ---
EXAMINATION: MM screening nathanael BI w shonda HISTORY: Screening mammogram TECHNIQUE: Craniocaudal and mediolateral oblique 3-D tomosynthesis images were obtained and synthetic 2-D images were generated. CAD analysis was submitted and interpreted. COMPARISON: No prior mammogram is available for comparison at this institution. BREAST PARENCHYMAL COMPOSITION:There are scattered areas of fibroglandular density. FINDINGS: No suspicious mass, calcification, or architectural distortion are identified in either teagan ast to suggest malignancy. IMPRESSION: No mammographic evidence of malignancy. Recommend routine screening mammography in one year. BI-RADS Category 1: Negative Reviewed, dictated and finalized at location . COMPLIANCE COORDINATOR
== END ==
DX: Z12.31 Encounter for screening mammogram for malignant neoplasm of breast (principal)
CPT/HCPCS: 77063; 77067

== ENCOUNTER 2023-03-19 15:55 | Emergency (ER) | payer OTHER, MEDICARE, SELFPAY ==
[2023-03-19] VITALS (10 sets, daily range): BP systolic 110–130; BP diastolic 68–90; PULSE 65–82; RESP 12–21; TEMP 36.6–36.8; O2SAT 99–100
--- NOTE | ~2023-03-19 | XR_ITS ---
EXAMINATION: XR chest 2V Exam Date/Time: 03/19/2023 16:04 CLOUD OPERATIONS ENGINEER HISTORY: CP RIGHT SIDE UNDER BREAST, SOB Comparison: 04/28/2014. RESULT: Lines, tubes, and devices: Cholecystomy clips. Lungs and pleura: Clear. Cardiomediastinal silhouette: Stable. Other: No acute osseous or upper abdominal finding. IMPRESSION: No acute cardiopulmonary process. Reviewed, dictated and finalized at location K. D OPERATIONS ENGINEER
--- NOTE | ~2023-03-19 | CT_ITS ---
EXAMINATION: CTA chest PE protocol DATE: 03/19/2023 19:48 INDICATION: PE, elevated dimer TECHNIQUE: Computed tomography angiography (CTA) of the chest was performed with 100 mL Omnipaque-350 intravenous contrast timed to evaluate the pulmonary arteries. Coronal maximum intensity projection 3D-reconstructions were created by the technologist. The dose-length product (DLP) was 227.11 mGy-cm. Automated exposure control and iterative reconstruction technique were employed. COMPARISON: X-ray chest, same date. FINDINGS: Lung parenchyma and airways: Clear. Pleura: Unremarkable. Thoracic inlet, axillae and chest wall: Unremarkable. Thoracic aorta: Normal. Mediastinum: Normal. Heart and pericardium: Normal. Coronary artery calcifications: Absent. Upper abdomen: No significant finding. Bones: No acute osseous finding. Pulmonary arteries: Study quality: Adequate. No pulmonary emboli detected. IMPRESSION: No CT evidence of acute pulmonary embolus. No acute intrathoracic process detected. Reviewed, dictated and finalized at location K. UNTS PAYABLE TECHNICIAN IMPRESSION: No CT evidence of acute pulmonary embolus. No acute intrathoracic process detec anthony.
--- NOTE | 2023-03-19 15:57 | ECG_ITS ---
Measurements Intervals [place] Rate: 73 P: 57 CT: 151 QRS: 61 QRSD: 92 T: 39 QT: 373 QTc: 412 Interpretive Statements SINUS RHYTHM NONSPECIFIC T-WAVE ABNORMALITY ABNORMAL ECG COMPARED TO ECG 07/13/2022 10:28:40 NO SIGNIFICANT CHANGES Electronically Signed On 03-20-2023 12:39:58 MEDIA SERVICES DIRECTOR by Adrien Mckeon M.D.
--- NOTE | 2023-03-19 16:08 | ED.CHESTPAIN ---
HPI - Chest Pain General Chief Complaint: Chest Pain Stated Complaint: CP Time Seen by Provider: 03/19/23 16:07 History of Present Illness HPI narrative: Patient is a 37-year-old female with history of MS, migraines here today with chest pain. She states that the chest pain began a couple of hours prior to presentation. She notes that it is right-sided and nonradiating. She notes that it seems to be worse with lying flat and improves when she is sitting upright. She has had a cough recently which is productive in nature. She denies any leg swelling or history of PE or DVT. Of note she did have an MRI with sedation earlier this week which required her to be intubated during the procedure. She presented to the emergency department because she is concerned that she may have developed a pneumonia after being intubated. She denies any fever chills. She additionally is complaining of a headache. She notes that it is a typical migraine for her and began earlier today. She has not taken any Tylenol or ibuprofen at home for her pain. She is a nonsmoker, does not take oral contraceptives. Related Data Home Medications Medication Instructions Recorded Confirmed cholecalciferol (vitamin D3) 1,250 50,000 unit PO WEEKLY 05/21/19 02/07/23 mcg (50,000 unit) capsule clonazepam 1 mg tablet 1 mg PO PRN PRN Anxiety 05/27/21 02/07/23 fingolimod 0.5 mg capsule (Gilenya) 0.5 mg PO DAILY 05/27/21 02/07/23 topiramate 200 mg tablet 200 mg PO DAILY 05/27/21 02/07/23 trazodone 50 mg tablet 50 mg PO HS 05/27/21 02/07/23 ubrogepant 100 mg tablet (Ubrelvy) 100 mg PO DAILY 05/27/21 02/07/23 Allergies Allergy/AdvReac Type Severity Reaction Status Date / Time cefaclor Allergy Mild Hives Verified 02/07/23 13:01 adhesive tape AdvReac Mild Rash Verified 02/07/23 13:01 Review of Systems Review of Systems: All systems reviewed & are unremarkable except as noted in HPI and below PMFSH Past Medical History Medical History Anxiety Colon polyp History of benign colon polyp on colonoscopy per Dr. June in 2014. Fibromyalgia Fracture of left clavicle Gastric ulcer Hypothyroidism Major depressive disorder, single episode, unspecified Migraine, unspecified, not intractable, without status migrainosus Multiple sclerosis Surgical History Surgical History History of appendectomy History of colonoscopy with polypectomy History of elective section History of endometrial ablation History of laparoscopic cholecystectomy Family History Family History Mother Fibromyalgia Breast cancer Grandparent Lung cancer Rheumatoid arthritis Social History Social History Social History: Surrogate medical decision maker: Karen Vasquez, spouse. Code status: Full code. Smoking packs per day: 0.5 Smoking cigarettes per day: 10.0 Years smoked: 3 Smoking pack-years: 1.50 Smoking status: Former smoker Tobacco type: cigarettes and e-cigarettes/vaping Second hand tobacco smoke exposure: No Smoking end date: 07/09/22 Alcohol intake: former Substance use: current Substance use type: marijuana Lack of Transportation: No Lack of Food: Never True Current Housing: I Have Housing Concerned About Future Housing: Decline to Answer Difficulty Paying Gas/Electric Bills: No Difficulty Paying for Meds: No Currently Unemployed: No Education: Associate Degree Difficulty w/ Childcare or Family Care: No Living arrangements: with family Occupation/Education: unemployed Additional occupation/education comments: Disabled. Spiritual care concerns: No Agree to blood products: Yes Exam Narrative: GENERAL: Well-appearing, well-nourished, and in no acute distress. HEAD: Normocephalic, atraumat
--- NOTE | 2023-03-19 16:25 | ECG_ITS ---
Measurements Intervals [place] Rate: 64 P: 62 NC: 150 QRS: 49 QRSD: 96 T: 16 QT: 390 QTc: 403 Interpretive Statements SINUS RHYTHM NONSPECIFIC T-WAVE ABNORMALITY ABNORMAL ECG COMPARED TO ECG 03/19/2023 16:02:25 NO SIGNIFICANT CHANGES Electronically Signed On 03-20-2023 12:43:39 AVID EDITOR by Adrien Mckeno M.D.
[2023-03-19] MEDS: ASPIRIN 81 MG CHEWABLE TABLET 324 MG PO (16:38)
[2023-03-19 16:45] LABS: Basophils Percent Auto 0.6 % (0.2-1.2); Eosinophils Absolute Auto 0.1 K/mm3 (0-0.3); Eosinophils Percent Auto 2.3 % (0-4.4); Hematocrit 41.1 % (37.0-47.0); Hemoglobin 13.5 g/dL (12.0-15.0); Lymphocytes Absolute Auto 0.44 K/mm3 (0.9-3.2); Lymphocytes Percent Auto 14.2 % (18.3-44.2); Mean Corpuscular HGB Conc 32.8 g/dl (32-36); Mean Corpuscular Hemoglobin 30.3 pg (26-34); Mean Corpuscular Volume 92.4 fl (80-100); Monocytes Absolute Auto 0.3 K/mm3 (0.1-0.6); Neutrophils Absolute Auto 2.2 K/mm3 (1.3-6.7); Neutrophils Percent Auto 71.9 % (45.5-73.1); Platelet Count Result 204 k/mm3 (150-375); Red Blood Count 4.45 M/mm3 (4.2-5.4); Red Cell Distribution Width 12.3 % (11.5-14.5); White Blood Count 3.1 K/mm3 (4.5-10.0)
[2023-03-19] MEDS: ACETAMINOPHEN 500 MG TABLET 1000 MG PO (16:47)
[2023-03-19] MEDS: SODIUM CHLORIDE 0.9% IV 1,000 ML 999 ML IV CONT (16:47)
[2023-03-19] MEDS: KETOROLAC 30 MG/ML VIAL (*BKC) 15 MG IV PUSH (16:48)
[2023-03-19] MEDS: METOCLOPRAMIDE HCL INJ 10 MG/2 ML VIAL IV PUSH (16:48)
[2023-03-19] MEDS: diphenhydrAMINE HCl INJ 50 MG/ML VIAL 25 MG IV PUSH (16:57)
[2023-03-19 17:01] LABS: Partial Thromboplastin Time 27.1 SECONDS (22.3-36.8)
[2023-03-19 17:05] LABS: Alanine Aminotransferase 26 U/L (6-35); Albumin Level 4.7 g/dL (3.5-5.1); Alkaline Phosphatase 99 U/L (38-126); Anion Gap 10 mmol/L (8-16); Aspartate Amino Transferase 25 U/L (14-36); Bilirubin,Total 0.5 mg/dL (0.2-1.3); Blood Urea Nitrogen 11 mg/dL (7-17); Calcium 9.3 mg/dL (8.4-10.2); Carbon Dioxide 19 mmol/L (22-30); Chloride 112 mmol/L (98-107); Estimated CRCL calculation 88 ml/min; Estimated Glomerular Filt Rate > 60; Glucose 100 mg/dL (65-110); Lipase 67 U/L (23-300); Sodium 141 mmol/L (137-145)
[2023-03-19 17:06] LABS: Troponin I < 0.012 ng/mL (0.000-0.034)
[2023-03-19 17:23] LABS: Influenza A QL RT-PCR Negative (Negative); Influenza B QL RT-PCR Negative (Negative); RSV RNA, RT-PCR Negative (Negative); SARS-CoV-2 RNA PCR Negative (Negative)
[2023-03-19 17:28] LABS: D Dimer 0.67 ug/mL (<0.48)
[2023-03-19] MEDS: MORPHINE SULFATE (*CRX) 4 MG/ML INJ IV PUSH (18:07)
[2023-03-19] MEDS: diazePAM (*CRX) 5 MG TABLET PO (18:47)
[2023-03-19 19:37] LABS: Troponin I < 0.012 ng/mL (0.000-0.034)
== END 2023-03-19 20:51 | disposition home or self-care (01) ==
PROVIDERS: Emergency Provider Student in an Organized Health Care Education/Training Program; PCP Family Medicine
DX: R07.89 Other chest pain (principal); G43.909 Migraine, unspecified, not intractable, without status migrainosus; Z20.822 Contact with and (suspected) exposure to COVID-19; G35 Multiple sclerosis; E03.9 Hypothyroidism, unspecified; M79.7 Fibromyalgia; F41.9 Anxiety disorder, unspecified; Z86.010 Personal history of colon polyps; Z87.891 Personal history of nicotine dependence; Z90.49 Acquired absence of other specified parts of digestive tract; R94.31 Abnormal electrocardiogram [ECG] [EKG]
CPT/HCPCS: 36415; 71046; 71275; 80053; 81025; 83690; 84484; 85025; 85380; 85610; 85730; 87637; 93005; 96361; 96374; 96375; 99284; A9270; J1200; J1885; J2270; J2765; J7030; Q9967

== ENCOUNTER 2023-04-03 07:10 | Emergency (ER) | payer OTHER, MEDICARE, SELFPAY ==
[2023-04-03] VITALS (10 sets, daily range): BP systolic 114–124; BP diastolic 74–87; PULSE 76–91; RESP 16–20; TEMP 36.6–36.9; O2SAT 93–100
--- NOTE | ~2023-04-03 | XR_ITS ---
XR chest 1V portable DATE: 04/03/2023 08:37 INDICATION: Cough TECHNIQUE: Portable AP chest on 04/03/2023 at 0835 hours COMPARISON: 03/19/2023 CTA chest 03/19/2023 2 view chest FINDINGS: There is mild infiltrate and/or atelectasis in both lower lung zones. The lungs otherwise a re clear. No pleural effusion or pulmonary vascular congestion or pneumothorax. Normal heart size. No hilar or mediastinal enlargement. IMPRESSION: Mild patchy bilateral lower lung infiltrate and/or atelectasis Reviewed, dictated and finalized at location [facility]. NEERING MANAGER
--- NOTE | 2023-04-03 07:31 | ED.URI ---
HPI - URI/Sore Throat General Chief Complaint: Upper Respiratory Infection Stated Complaint: chest discomfort/congestion/body aches Time Seen by Provider: 04/03/23 07:31 Source: patient Mode of arrival: ambulatory Limitations: no limitations History of Present Illness HPI Narrative: 37 years old white female came to the emergency room by private car complaining of productive cough since March 14. associated with nasal congestion and postnasal discharge. History of multiple sclerosis, patient reported that her kids and her had similar symptoms and everybody is improving except her. Was seen by her family physician with negative workup. She denies fever, chills, nausea, vomiting. Related Data Home Medications Medication Instructions Recorded Confirmed cholecalciferol (vitamin D3) 1,250 50,000 unit PO WEEKLY 05/21/19 03/22/23 mcg (50,000 unit) capsule clonazepam 1 mg tablet 1 mg PO PRN PRN Anxiety 05/27/21 03/22/23 fingolimod 0.5 mg capsule (Gilenya) 0.5 mg PO DAILY 05/27/21 03/22/23 topiramate 200 mg tablet 200 mg PO DAILY 05/27/21 03/22/23 trazodone 50 mg tablet 50 mg PO HS 05/27/21 03/22/23 ubrogepant 100 mg tablet (Ubrelvy) 100 mg PO DAILY 05/27/21 03/22/23 Allergies Allergy/AdvReac Type Severity Reaction Status Date / Time cefaclor Allergy Mild Hives Verified 03/22/23 13:03 bupropion [From Wellbutrin] AdvReac Intermediate Agitated Verified 03/22/23 13:27 adhesive tape AdvReac Mild Rash Verified 03/22/23 13:03 Review of Systems Review of Systems: All systems reviewed & are unremarkable except as noted in HPI and below PMFSH Past Medical History Medical History Anxiety Colon polyp History of benign colon polyp on colonoscopy per Dr. June in 2013. Fibromyalgia Fracture of left clavicle Gastric ulcer Hypothyroidism Major depressive disorder, single episode, unspecified Migraine, unspecified, not intractable, without status migrainosus Multiple sclerosis Surgical History Surgical History History of appendectomy History of colonoscopy with polypectomy History of elective section History of endometrial ablation History of laparoscopic cholecystectomy Family History Family History Mother Fibromyalgia Breast cancer Grandparent Lung cancer Rheumatoid arthritis Social History Social History Social History: Surrogate medical decision maker: Karen Vasquez, spouse. Code status: Full code. Smoking packs per day: 0.5 Smoking cigarettes per day: 10.0 Years smoked: 3 Smoking pack-years: 1.50 Smoking status: Former smoker Tobacco type: cigarettes and e-cigarettes/vaping Second hand tobacco smoke exposure: No Smoking end date: 07/09/22 Alcohol intake: former Substance use: current Substance use type: marijuana Lack of Transportation: No Lack of Food: Never True Current Housing: I Have Housing Concerned About Future Housing: Decline to Answer Difficulty Paying Gas/Electric Bills: No Difficulty Paying for Meds: No Currently Unemployed: No Education: Associate Degree Difficulty w/ Childcare or Family Care: No Living arrangements: with family Occupation/Education: unemployed Additional occupation/education comments: Disabled. Spiritual care concerns: No Agree to blood products: Yes Exam Narrative: General appearance: Well-developed, well-nourished Skin: Normal color Head: Normocephalic, nontraumatic Eyes: Clear conjunctiva ENT: Oropharynx normal, ears normal, nose normal Neck: Supple, nontender Chest and respiratory: Airway patent, no respiratory distress, no accessory muscle use, few scattered coarse rhonchi and wheezing Heart: Regular rate/rhythm Abdomen: Soft, nontender, no organomegaly, quiet bowel sounds Vascu
[2023-04-03] MEDS: predniSONE 20 MG TABLET 60 MG PO (07:54)
[2023-04-03 08:00] LABS: Influenza A QL RT-PCR Negative (Negative); Influenza B QL RT-PCR Negative (Negative); RSV RNA, RT-PCR Negative (Negative); SARS-CoV-2 RNA PCR Negative (Negative)
[2023-04-03] MEDS: IPRATROPIUM BR 0.02% INH SOLN 0.5 MG/2.5 ML VIAL INHALATION ×3 (08:10)
[2023-04-03] MEDS: ALBUTEROL SULFATE NEB 2.5 MG/3 ML INH INHALATION ×3 (08:10)
[2023-04-03] MEDS: levoFLOXacin 750 MG TABLET PO (09:42)
== END 2023-04-03 10:07 | disposition home or self-care (01) ==
PROVIDERS: Emergency Provider Emergency Medicine; PCP Family Medicine
DX: J20.9 Acute bronchitis, unspecified (principal); E03.9 Hypothyroidism, unspecified; Z87.891 Personal history of nicotine dependence; Z20.822 Contact with and (suspected) exposure to COVID-19
CPT/HCPCS: 71045; 87637; 94640; 99283; A9270; J7512

== ENCOUNTER 2023-08-09 23:04 | Emergency (ER) | payer OTHER, MEDICARE, SELFPAY ==
[2023-08-09 23:05] VITALS: BP 103/57; PULSE 68; RESP 22; TEMP 36.4; O2SAT 100
[2023-08-09 23:37] VITALS: BP 121/80; PULSE 74; RESP 19; O2SAT 100
[2023-08-09 23:38] VITALS: BP 121/80; PULSE 72; RESP 18; O2SAT 100
--- NOTE | 2023-08-09 23:43 | ECG_ITS ---
SEE SCANNED COPY FOR CONFIRMED REPORT. MTDD
--- NOTE | 2023-08-09 23:53 | PC.NURSE ---
Dr. Krysten CORTES 4mg zofran.
[2023-08-09] MEDS: ONDANSETRON INJ 4 MG/2 ML VIAL IV PUSH (23:55)
[2023-08-10] VITALS (9 sets, daily range): BP systolic 110–134; BP diastolic 71–86; PULSE 72–88; RESP 12–19; O2SAT 99–100
[2023-08-10 00:02] LABS: Basophils Percent Auto 0.4 % (0.2-1.2); Eosinophils Absolute Auto 0.1 K/mm3 (0-0.3); Eosinophils Percent Auto 0.8 % (0-4.4); Hematocrit 41.7 % (37.0-47.0); Immature Granulocyte Absolute 0.03 K/mm3 (0.00-0.031); Immature Granulocyte Percent A 0.4 % (0-0.5); Lymphocytes Absolute Auto 0.25 K/mm3 (0.9-3.2); Mean Corpuscular HGB Conc 33.6 g/dl (32-36); Mean Corpuscular Hemoglobin 30.6 pg (26-34); Monocytes Absolute Auto 0.4 K/mm3 (0.1-0.6); Monocytes Percent Auto 4.2 % (2.6-8.5); Neutrophils Absolute Auto 7.6 K/mm3 (1.3-6.7); Neutrophils Percent Auto 91.2 % (45.5-73.1); Platelet Count Result 213 k/mm3 (150-375); Red Blood Count 4.58 M/mm3 (4.2-5.4); Red Cell Distribution Width 12.5 % (11.5-14.5); White Blood Count 8.3 K/mm3 (4.5-10.0)
[2023-08-10] MEDS: SODIUM CHLORIDE 0.9% IV 2,000 ML 999 ML IV CONT (00:15)
[2023-08-10] MEDS: FAMOTIDINE 20 MG/2 ML VIAL IV PUSH (00:15)
--- NOTE | 2023-08-10 00:15 | ED.GENADULT ---
HPI - General Adult General Chief complaint: Abdominal Pain Stated complaint: N/V/D, abd pain Time Seen by Provider: 08/09/23 23:49 History of Present Illness HPI narrative: This is a 38-year-old female presenting ED with a chief complaint of nausea vomiting diarrhea. Her her both have identical symptoms. They had when these earlier today. Then at 7:30 a.m. she developed acute nausea vomiting diarrhea. No fever chills. No chest pain Difficulty breathing or abdominal pain. No blood in the diarrhea. No travel history. No recent antibiotics. Patient is a daily marijuana user. Related Data Home Medications Medication Instructions Recorded Confirmed cholecalciferol (vitamin D3) 1,250 50,000 unit PO WEEKLY 05/21/19 04/04/23 mcg (50,000 unit) capsule clonazepam 1 mg tablet 1 mg PO PRN PRN Anxiety 05/27/21 04/04/23 fingolimod 0.5 mg capsule (Gilenya) 0.5 mg PO DAILY 05/27/21 04/04/23 topiramate 200 mg tablet 200 mg PO DAILY 05/27/21 04/04/23 trazodone 50 mg tablet 50 mg PO HS 05/27/21 04/04/23 ubrogepant 100 mg tablet (Ubrelvy) 100 mg PO DAILY 05/27/21 04/04/23 Allergies Allergy/AdvReac Type Severity Reaction Status Date / Time cefaclor Allergy Mild Hives Verified 08/09/23 23:39 bupropion [From Wellbutrin] AdvReac Intermediate Agitated Verified 08/09/23 23:39 adhesive tape AdvReac Mild Rash Verified 08/09/23 23:39 [facility] Past Medical History Medical History Anxiety Colon polyp History of benign colon polyp on colonoscopy per Dr. June in 2013. Fibromyalgia Fracture of left clavicle Gastric ulcer Hypothyroidism Major depressive disorder, single episode, unspecified Migraine, unspecified, not intractable, without status migrainosus Multiple sclerosis Surgical History Surgical History History of appendectomy History of colonoscopy with polypectomy History of elective section History of endometrial ablation History of laparoscopic cholecystectomy Family History Family History Mother Fibromyalgia Breast cancer Grandparent Lung cancer Rheumatoid arthritis Social History Social History Social History: Surrogate medical decision maker: Karen Vasquez, spouse. Code status: Full code. Smoking packs per day: 0.5 Smoking cigarettes per day: 10.0 Years smoked: 3 Smoking pack-years: 1.50 Smoking status: Former smoker Tobacco type: cigarettes and e-cigarettes/vaping Second hand tobacco smoke exposure: No Smoking end date: 07/09/22 Alcohol intake: former Substance use: current Substance use type: marijuana Lack of Transportation: No Lack of Food: Never True Current Housing: I Have Housing Concerned About Future Housing: Decline to Answer Difficulty Paying Gas/Electric Bills: No Difficulty Paying for Meds: No Currently Unemployed: No Education: Associate Degree Difficulty w/ Childcare or Family Care: No Living arrangements: with family Occupation/Education: unemployed Additional occupation/education comments: Disabled. Spiritual care concerns: No Agree to blood products: Yes Exam Narrative: APPEARANCE: patient appears uncomfortable Head: atraumatic. EYES: EOMI, NOSE: Atraumatic NECK: Trachea midline RESPIRATORY: No increased rate of breathing CTAB CARDIOVASCULAR: RRR, no peripheral edema ABDOMINAL: Non-distended Soft nontender no guarding or rebound MUSCULOSKELETAl: No obvious deformities NEURO: Alert. Moving 4/4 extremities SKIN:: Warm, dry. Normal color PSYCHIATRIC: Normal affect Course Vital Signs Vital signs: Vital Signs Temperature 97.5 F L 08/09/23 23:05 Pulse Rate 68 08/09/23 23:05 Respiratory Rate 22 H 08/09/23 23:05 Blood Pressure 103/57 L 08/09/23 23:05 Pulse Ox
[2023-08-10 00:17] LABS: Alanine Aminotransferase 24 U/L (6-35); Albumin Level 4.9 g/dL (3.5-5.1); Alkaline Phosphatase 120 U/L (38-126); Anion Gap 13 mmol/L (4-12); Aspartate Amino Transferase 25 U/L (14-36); Bilirubin,Total 0.7 mg/dL (0.2-1.3); Blood Urea Nitrogen 12 mg/dL (7-17); Calcium 9.3 mg/dL (8.4-10.2); Carbon Dioxide 15 mmol/L (22-30); Chloride 109 mmol/L (98-107); Estimated CRCL calculation 77 ml/min; Estimated Glomerular Filt Rate > 60; Glucose 186 mg/dL (65-110); Lipase 110 U/L (23-300); Potassium 3.2 mmol/L (3.4-5.0); Sodium 137 mmol/L (137-145)
[2023-08-10] MEDS: POTASSIUM CHLORIDE 20 MEQ ER TABLET 40 MEQ PO (02:05)
[2023-08-10] MEDS: diphenhydrAMINE HCl INJ 50 MG/ML VIAL 25 MG IV PUSH (02:15)
[2023-08-10] MEDS: PROCHLORPERAZINE EDISYLATE 10 MG/2 ML VIAL IV PUSH (02:15)
== END 2023-08-10 04:21 | disposition home or self-care (01) ==
PROVIDERS: Emergency Provider Emergency Medicine; PCP Family Medicine
DX: K52.9 Noninfective gastroenteritis and colitis, unspecified (principal); G35 Multiple sclerosis; E03.9 Hypothyroidism, unspecified; M79.7 Fibromyalgia; F41.9 Anxiety disorder, unspecified; F32.9 Major depressive disorder, single episode, unspecified; Z86.010 Personal history of colon polyps; Z87.891 Personal history of nicotine dependence; Z90.49 Acquired absence of other specified parts of digestive tract; R94.31 Abnormal electrocardiogram [ECG] [EKG]
CPT/HCPCS: 36415; 80053; 83690; 85025; 93005; 96361; 96374; 96375; 99284; A9270; J0780; J1200; J2405; J7030

== ENCOUNTER 2023-08-20 10:23 | Emergency (ER) | payer OTHER, MEDICARE, SELFPAY ==
[2023-08-20] VITALS (10 sets, daily range): BP systolic 122–126; BP diastolic 78–81; PULSE 66–73; RESP 9–18; TEMP 37.1; O2SAT 97–100
--- NOTE | ~2023-08-20 | CT_ITS ---
EXAMINATION: CT abdomen pelvis wo con DATE: 08/20/2023 11:29 INDICATION: Left flank pain TECHNIQUE: Computed tomography (CT) of the abdomen and pelvis was performed without intravenous contr ast. Automated exposure control and iterative reconstruction technique were employed. Exam dose: 433 .34 mGy-cm total exam DLP. COMPARISON: None. FINDINGS: The lung bases are clear of infiltrate or consolidation. Normal heart size. No pericardial or pleural effusion. Status post cholecystectomy. No hepatic, splenic, pancreatic, adrenal or renal space occupying mass lesion is evident on this limi anthony noncontrast examination. No bile duct or pancreatic duct dilatation. No urinary tract calculus or hydroureteronephrosis. Normal caliber of the abdominal aorta. No intraperitoneal or retroperitoneal pelvic mass lesion or ad enopathy or ascites. Uterus, adnexal areas and urinary bladder are unremarkable. There is a prominent amount of fecal material in the colon but no bowel obstruction or bowel wall thi ckening, pneumatosis or intraperitoneal free air is evident. Included skeletal structures are unremarkable. IMPRESSION: No significant abnormality Reviewed, dictated and finalized at [facility]. Reviewed, dictated and finalized at [facility]. IMPRESSION: No significant abnormality
--- NOTE | ~2023-08-20 | US_ITS ---
EXAMINATION: US pelvic complete w TV DATE: 08/20/2023 13:42 INDICATION: Pelvic pain. TECHNIQUE: Multiple transabdominal and transvaginal sonographic images of the pelvis were obtained. COMPARISON: CT abdomen and pelvis 08/20/2023 FINDINGS: TRANSABDOMINAL ULTRASOUND: The uterus measures 7.5 x 4.5 x 6.7 cm. There is no free fluid in the pelvis. TRANSVAGINAL ULTRASOUND: The endometrial complex measures 3 mm in thickness. The right ovary measures 4.1 x 2.6 x 2.8 cm. The left ovary measures 3.6 x 2.2 x 2.8 cm. There is normal vascular flow in the ovaries. IMPRESSION: 1. Normal pelvis. Reviewed, dictated and finalized at location [facility]. IMPRESSION: 1. Normal pelvis.
[2023-08-20] MEDS: ONDANSETRON INJ 4 MG/2 ML VIAL IV PUSH (11:12)
[2023-08-20] MEDS: KETOROLAC 30 MG/ML VIAL (*BKC) IV PUSH (11:12)
[2023-08-20] MEDS: SODIUM CHLORIDE 0.9% IV 1,000 ML 999 ML IV CONT (11:12)
--- NOTE | 2023-08-20 11:18 | PC.NURSE ---
patient denies need for test. states has had vasectomy and she recently had LEEP procedure 1 week ago.
[2023-08-20 11:22] LABS: Basophils Percent Auto 0.6 % (0.2-1.2); Eosinophils Percent Auto 0.6 % (0-4.4); Hemoglobin 13.1 g/dL (12.0-15.0); Immature Granulocyte Absolute 0.01 K/mm3 (0.00-0.031); Immature Granulocyte Percent A 0.3 % (0-0.5); Lymphocytes Absolute Auto 0.57 K/mm3 (0.9-3.2); Lymphocytes Percent Auto 17.1 % (18.3-44.2); Mean Corpuscular HGB Conc 32.8 g/dl (32-36); Mean Corpuscular Hemoglobin 30.4 pg (26-34); Mean Corpuscular Volume 92.8 fl (80-100); Mean Platelet Volume 9.8 fl (7.4-10.4); Monocytes Absolute Auto 0.4 K/mm3 (0.1-0.6); Monocytes Percent Auto 10.8 % (2.6-8.5); Neutrophils Absolute Auto 2.4 K/mm3 (1.3-6.7); Neutrophils Percent Auto 70.6 % (45.5-73.1); Platelet Count Result 243 k/mm3 (150-375); Red Blood Count 4.31 M/mm3 (4.2-5.4); Red Cell Distribution Width 12.8 % (11.5-14.5); White Blood Count 3.3 K/mm3 (4.5-10.0)
--- NOTE | 2023-08-20 11:29 | ED.ABDPAIN ---
HPI - Abdominal Pain General Chief Complaint: Abdominal Pain Stated Complaint: Abdominal Time Seen by Provider: 08/20/23 10:27 History of Present Illness HPI narrative: Patient is a 38-year-old female who presents ER with sudden onset abdominal pain. Left-sided. Occurred while at [employer]. It had her doubled over in pain. No alleviating factors. Denies fevers or chills or sweats. No urinary frequency urgency or dysuria. Recently had a bout of GI illness. She has not had pains like this since she had her gallbladder removed. Related Data Home Medications Medication Instructions Recorded Confirmed cholecalciferol (vitamin D3) 1,250 50,000 unit PO WEEKLY 05/21/19 08/15/23 mcg (50,000 unit) capsule clonazepam 1 mg tablet 1 mg PO PRN PRN Anxiety 05/27/21 08/15/23 topiramate 200 mg tablet 200 mg PO DAILY 05/27/21 08/15/23 trazodone 50 mg tablet 50 mg PO HS 05/27/21 08/15/23 ubrogepant 100 mg tablet (Ubrelvy) 100 mg PO DAILY 05/27/21 08/15/23 Allergies Allergy/AdvReac Type Severity Reaction Status Date / Time cefaclor Allergy Mild Hives Verified 08/15/23 10:35 bupropion [From Wellbutrin] AdvReac Intermediate Agitated Verified 08/15/23 10:35 adhesive tape AdvReac Mild Rash Verified 08/15/23 10:35 Review of Systems Review of Systems: All systems reviewed & are unremarkable except as noted in HPI and below Constitutional: Constitutional: Reports no additional constitutional complaints ENT: Reports system reviewed and no additional complaints, except as documented Cardiovascular: Cardiovascular: Reports no additional cardiovascular complaints Respiratory: Respiratory: Reports no additional respiratory complaints Gastrointestinal: Gastrointestinal: Reports abdominal pain, Denies constipation, Denies diarrhea and Reports nausea Genitourinary: Genitourinary: Reports no additional female genitourinary complaints [facility] Past Medical History Medical History Anxiety Colon polyp History of benign colon polyp on colonoscopy per Dr. June in 2013. Fibromyalgia Fracture of left clavicle Gastric ulcer Hypothyroidism Major depressive disorder, single episode, unspecified Migraine, unspecified, not intractable, without status migrainosus Multiple sclerosis Surgical History Surgical History History of appendectomy History of colonoscopy with polypectomy History of elective section History of endometrial ablation History of laparoscopic cholecystectomy Family History Family History Mother Fibromyalgia Breast cancer Grandparent Lung cancer Rheumatoid arthritis Social History Social History Social History: Surrogate medical decision maker: Karen Vasquez, spouse. Code status: Full code. Smoking packs per day: 0.5 Smoking cigarettes per day: 10.0 Years smoked: 3 Smoking pack-years: 1.50 Smoking status: Former smoker Tobacco type: cigarettes and e-cigarettes/vaping Second hand tobacco smoke exposure: No Smoking end date: 07/09/22 Alcohol intake: former Substance use: current Substance use type: marijuana Lack of Transportation: No Lack of Food: Never True Current Housing: I Have Housing Concerned About Future Housing: Decline to Answer Difficulty Paying Gas/Electric Bills: No Difficulty Paying for Meds: No Currently Unemployed: No Education: Associate Degree Difficulty w/ Childcare or Family Care: No Living arrangements: with family Occupation/Education: unemployed Additional occupation/education comments: Disabled. Spiritual care concerns: No Agree to blood products: Yes Exam Narrative: GENERAL: Well-appearing, well-nourished, and in no acute distress. HEAD: Normocephalic, atraumatic. ENT: Mucous membr
[2023-08-20 11:31] LABS: Alanine Aminotransferase 19 U/L (6-35); Albumin Level 4.2 g/dL (3.5-5.1); Alkaline Phosphatase 99 U/L (38-126); Anion Gap 7 mmol/L (4-12); Aspartate Amino Transferase 20 U/L (14-36); Bilirubin,Total 0.4 mg/dL (0.2-1.3); Blood Urea Nitrogen 11 mg/dL (7-17); Calcium 8.8 mg/dL (8.4-10.2); Carbon Dioxide 23 mmol/L (22-30); Chloride 110 mmol/L (98-107); Estimated CRCL calculation 77 ml/min; Estimated Glomerular Filt Rate > 60; Glucose 103 mg/dL (65-110); Lipase 76 U/L (23-300); Potassium 3.9 mmol/L (3.4-5.0); Sodium 140 mmol/L (137-145)
[2023-08-20 12:01] LABS: Amorphous Sediment Urine Few; Appearance Urine Cloudy (Clear); Bacteria Urine Rare /hpf; Bilirubin Urine Negative (Negative); Blood Urine Negative (Negative); Color Urine Yellow (Yellow); Glucose Urine UA Negative (Negative); Ketones Urine Trace mg/dL (Negative); Leukocyte Esterase Ur Trace LEU/UL (Negative); Nitrate Urine Negative (Negative); Non Pathogenic Casts 0-2; Protein Urine Negative (Negative); Specific Grav Ur 1.021 (1.001-1.035); Squamous Epithelial Cell Urine Occasional /hpf (Few); WBC Urine 0-5 /hpf (0-3)
[2023-08-20 12:02] LABS: Add Urine Microscopic? YES
[2023-08-20] MEDS: MORPHINE SULFATE (*CRX) 4 MG/ML INJ IV PUSH (13:10)
[2023-08-20] MEDS: DICYCLOMINE HCL INJ 20 MG/2 ML VIAL IM (13:10)
== END 2023-08-20 14:45 | disposition home or self-care (01) ==
PROVIDERS: Emergency Provider Emergency Medicine; PCP Family Medicine
DX: R10.9 Unspecified abdominal pain (principal); G35 Multiple sclerosis; M79.7 Fibromyalgia; E03.9 Hypothyroidism, unspecified; Z86.010 Personal history of colon polyps; F41.9 Anxiety disorder, unspecified; F32.9 Major depressive disorder, single episode, unspecified; Z87.891 Personal history of nicotine dependence; Z90.49 Acquired absence of other specified parts of digestive tract
CPT/HCPCS: 36415; 74176; 76830; 76856; 80053; 81001; 83690; 85025; 96361; 96372; 96374; 96375; 99284; J0500; J1885; J2270; J2405; J7030

== ENCOUNTER 2024-03-04 12:19 | Outpatient (CLI) | payer OTHER, MEDICARE, SELFPAY ==
[2024-03-04 13:40] LABS: Influenza A QL RT-PCR Negative (Negative); Influenza B QL RT-PCR Negative (Negative); RSV RNA, RT-PCR Negative (Negative); SARS-CoV-2 RNA PCR Negative (Negative)
== END 2024-03-04 12:20 | disposition home or self-care (01) ==
LOC: ANHLAB 12:23
PROVIDERS: PCP Family Medicine; Visit Provider Physician Assistant
DX: R05.9 Cough, unspecified (principal); R49.1 Aphonia
CPT/HCPCS: 87637

== ENCOUNTER 2024-03-19 06:03 | Emergency (ER) | payer OTHER, MEDICARE, SELFPAY | END 2024-03-19 08:57 | disposition left against medical advice (07) | LOC: ANHED 08:57 | PROVIDERS: PCP Family Medicine | DX: G43.909 Migraine, unspecified, not intractable, without status migrainosus (principal) | CPT/HCPCS: 99199 ==